=== PATIENT | male | born 1955 | race Caucasian/White ===

== ENCOUNTER 2016-12-18 09:00 | Outpatient (RCR) | payer BC ==
[~2016-12-18] VITALS: Ht 188 cm; Wt 90.9 kg
[~2016-12-18 09:00] MED LIST changes: -AV-PHOS 250 NE250 MG; -BACTRIM 400 MG-1 TA1 PO; -FAMOTIDINE40 M1 PO; -MAGNESIUM-VIT1 EACH PO; -MYCOPHENOLIC A180 MG PO; -NATURAL IRON65 MG PO; -NYSTATIN 100MU/M1 ML PO; -PRAVACHOL 20MG20 MG PO; -PREDNISONE10 MG PO; -PROGRAF 1MG1 MG PO; -VALCYTE50 MG/ML PO
[2016-12-18] MEDS ORDERED: PROGRAF 1MG1 MG PO (09:24)
[2016-12-18] MEDS ORDERED: MYCOPHENOLIC A180 MG PO (09:25)
[2016-12-18] MEDS ORDERED: PREDNISONE10 MG PO (09:25)
[2016-12-18] MEDS ORDERED: VALCYTE50 MG/ML PO (09:25)
[2016-12-18] MEDS ORDERED: BACTRIM 400 MG-1 TA1 PO (09:25)
[2016-12-18] MEDS ORDERED: NYSTATIN 100MU/M1 ML PO (09:25)
[2016-12-18] MEDS ORDERED: MAGNESIUM-VIT1 EACH PO (09:26)
[2016-12-18] MEDS ORDERED: PRAVACHOL 20MG20 MG PO (09:26)
[2016-12-18] MEDS ORDERED: NATURAL IRON65 MG PO (09:26)
[2016-12-18] MEDS ORDERED: AV-PHOS 250 NE250 MG (09:26)
[2016-12-18] MEDS ORDERED: FAMOTIDINE40 M1 PO (09:27)
[2016-12-21 17:50] VITALS: BP 112/73
== END 2017-03-18 | disposition home or self-care (01) ==
LOC: AMSURD
DX: Z48.00 Encounter for change or removal of nonsurgical wound dressing (principal); Z45.2 Encounter for adjustment and management of vascular access device

== ENCOUNTER → 2016-12-18 | Outpatient (CLI) | payer BC ==
[~2016-12-18] MED LIST: AV-PHOS 250 NE250 MG; BACTRIM 400 MG-1 TA1 PO; COUMADIN 1010 MG/TAB PO; COUMADIN 5MG5 MG/TAB PO; ESBRIET267 MG PO; FAMOTIDINE40 M1 PO; LASIX40 M1; MAGNESIUM-VIT1 EACH PO; METOPROLOL SUCC25 M1 PO; MYCOPHENOLIC A180 MG PO; NATURAL IRON65 MG PO; NYSTATIN 100MU/M1 ML PO; PRAVACHOL 20MG20 MG PO; PREDNISONE10 MG PO; PROGRAF 1MG1 MG PO; VALCYTE50 MG/ML PO; ZYLOPRIM 100MG100 MG PO
[2016-12-18 09:22] VITALS: BP 112/73
== END ==
LOC: LAB 08:18
DX: Z94.2 Lung transplant status (principal); Z48.298 Encounter for aftercare following other organ transplant

== ENCOUNTER → 2016-12-28 | Outpatient (CLI) | payer BC ==
[2016-12-21 17:50] VITALS: BP 112/73
[~2016-12-28] MED LIST changes: +AV-PHOS 250 NE250 MG; +BACTRIM 400 MG-1 TA1 PO; +FAMOTIDINE40 M1 PO; +MAGNESIUM-VIT1 EACH PO; +MYCOPHENOLIC A180 MG PO; +NATURAL IRON65 MG PO; +NYSTATIN 100MU/M1 ML PO; +PRAVACHOL 20MG20 MG PO; +PREDNISONE10 MG PO; +PROGRAF 1MG1 MG PO; +VALCYTE50 MG/ML PO
== END ==
LOC: LAB 08:17
DX: Z51.81 Encounter for therapeutic drug level monitoring (principal); Z79.01 Long term (current) use of anticoagulants; I48.2 Chronic atrial fibrillation

== ENCOUNTER → 2017-01-03 | Outpatient (CLI) | payer BC ==
[2016-12-21 17:50] VITALS: BP 112/73
== END ==
LOC: LAB 08:04
DX: Z51.81 Encounter for therapeutic drug level monitoring (principal); Z79.01 Long term (current) use of anticoagulants; I48.2 Chronic atrial fibrillation

== ENCOUNTER → 2017-01-23 | Outpatient (CLI) | payer BC | LOC: LAB 08:28 | DX: Z48.298 Encounter for aftercare following other organ transplant (principal); Z94.2 Lung transplant status ==

== ENCOUNTER → 2017-04-02 | Outpatient (CLI) | payer BC | LOC: LAB 08:11 | DX: Z94.2 Lung transplant status (principal); Z48.298 Encounter for aftercare following other organ transplant; Z79.899 Other long term (current) drug therapy; Z79.01 Long term (current) use of anticoagulants; I48.2 Chronic atrial fibrillation ==

== ENCOUNTER → 2017-04-11 | Outpatient (CLI) | payer BC | LOC: LAB 09:56 | DX: Z79.01 Long term (current) use of anticoagulants (principal); I48.2 Chronic atrial fibrillation ==

== ENCOUNTER → 2017-05-14 | Outpatient (CLI) | payer BC ==
[2017-05-14 07:44] LABS: PROTHROMBIN TIME 10.7 SECONDS (9.0-12.0)
[2017-05-14 08:14] LABS: BUN/CREATININE RATIO 21.8 (6.0-26.0); CALCIUM 9.6 mg/dL (8.4-10.2); POTASSIUM 4.2 mmol/L (3.6-5.0)
== END ==
LOC: LAB 07:08
PROVIDERS: Internal Medicine Pulmonary Disease
DX: Z48.298 Encounter for aftercare following other organ transplant (principal); Z94.2 Lung transplant status; Z79.01 Long term (current) use of anticoagulants

== ENCOUNTER → 2017-05-14 | Day surgery (SDC) | payer BC | LOC: MSO 07:09 | DX: Z12.11 Encounter for screening for malignant neoplasm of colon (principal); Z94.2 Lung transplant status; Z79.01 Long term (current) use of anticoagulants; Z79.52 Long term (current) use of systemic steroids; Z79.899 Other long term (current) drug therapy; D12.2 Benign neoplasm of ascending colon; D12.4 Benign neoplasm of descending colon; Z87.891 Personal history of nicotine dependence; E11.9 Type 2 diabetes mellitus without complications; Z85.47 Personal history of malignant neoplasm of testis; Z79.4 Long term (current) use of insulin; I48.91 Unspecified atrial fibrillation | CPT/HCPCS: 00810; J7030 ==

== ENCOUNTER → 2017-05-24 | Outpatient (CLI) | payer BC ==
[2017-05-24 08:15] LABS: PROTHROMBIN TIME 16.5 SECONDS (9.0-12.0)
[2017-05-24 08:16] LABS: BUN/CREATININE RATIO 23.6 (6.0-26.0); CALCIUM 9.5 mg/dL (8.4-10.2); POTASSIUM 4.6 mmol/L (3.6-5.0)
== END ==
LOC: LAB 07:55
PROVIDERS: Internal Medicine Pulmonary Disease
DX: Z48.298 Encounter for aftercare following other organ transplant (principal); Z94.2 Lung transplant status; Z79.899 Other long term (current) drug therapy

== ENCOUNTER → 2017-06-08 | Outpatient (CLI) | payer BC ==
[~2017-06-08] VITALS: Ht 188 cm; Wt 115.9 kg
[~2017-06-08] MED LIST changes: +CALCIUM CITRAT1 EAC4 PO; +CLEOCIN HCL300 MG PO; +HUMULIN SQ; +K-PHOS NEUTRAL250 M1 PO; +LOPRESSOR 225 MG/TAB PO; +MAG-OX 400400 MG/TAB PO; +MULTIVITAMIN1 SGL PO; +MYFORTIC180 MG PO; +PEPCID40 M1 PO; +PREDNISONE 5MG5 MG PO; +PROGRAF 0.5MG0.5 MG; +TRAMADOL 50 MG TAB PO; +VITAMIN D31000 I1 PO; +ZITHROMAX 250M250 MG PO; +[UNRECOGNIZED DRUG - OTHER] PO
[2017-06-08 11:15] VITALS: BP 116/72
[2017-06-08 13:27] VITALS: BP 128/67
== END ==
LOC: AMSURD 10:57
DX: E86.0 Dehydration (principal); N17.9 Acute kidney failure, unspecified; Z94.2 Lung transplant status
CPT/HCPCS: J7030

== ENCOUNTER → 2017-06-12 | Outpatient (CLI) | payer BC ==
[2017-06-08 13:27] VITALS: BP 128/67
[2017-06-12 10:12] LABS: BUN/CREATININE RATIO 20.8 (6.0-26.0); POTASSIUM 4.1 mmol/L (3.6-5.0)
== END ==
LOC: LAB 09:51
PROVIDERS: Internal Medicine Pulmonary Disease
DX: Z94.2 Lung transplant status (principal); Z48.24 Encounter for aftercare following lung transplant

== ENCOUNTER → 2017-06-19 | Outpatient (CLI) | payer BC ==
[2017-06-08 13:27] VITALS: BP 128/67
[2017-06-19 10:48] LABS: PROTHROMBIN TIME 17.2 SECONDS (9.0-12.0)
[2017-06-19 10:59] LABS: BUN/CREATININE RATIO 21.1 (6.0-26.0); CALCIUM 9.7 mg/dL (8.4-10.2); POTASSIUM 4.6 mmol/L (3.6-5.0)
== END ==
LOC: LAB 10:03
PROVIDERS: Internal Medicine Pulmonary Disease
DX: Z79.01 Long term (current) use of anticoagulants (principal); I48.2 Chronic atrial fibrillation; Z94.2 Lung transplant status; Z48.298 Encounter for aftercare following other organ transplant

== ENCOUNTER → 2017-06-28 | Outpatient (CLI) | payer BC ==
[2017-06-08 13:27] VITALS: BP 128/67
[2017-06-28 10:40] LABS: BUN/CREATININE RATIO 23.4 (6.0-26.0); CALCIUM 9.4 mg/dL (8.4-10.2); POTASSIUM 3.8 mmol/L (3.6-5.0); TOTAL BILIRUBIN 0.8 mg/dL (0.2-1.3); TOTAL PROTEIN 7.4 g/dL (6.3-8.2)
== END ==
LOC: LAB 08:51
PROVIDERS: Internal Medicine Pulmonary Disease
DX: I48.2 Chronic atrial fibrillation (principal); Z79.01 Long term (current) use of anticoagulants

== ENCOUNTER → 2017-07-09 | Outpatient (CLI) | payer BC ==
[2017-06-08 13:27] VITALS: BP 128/67
[2017-07-09 08:56] LABS: CALCIUM 9.1 mg/dL (8.4-10.2); POTASSIUM 3.9 mmol/L (3.6-5.0)
== END ==
LOC: LAB 08:33
PROVIDERS: Internal Medicine Pulmonary Disease
DX: Z79.899 Other long term (current) drug therapy (principal); Z94.2 Lung transplant status

== ENCOUNTER → 2017-08-01 | Outpatient (CLI) | payer BC ==
[2017-06-08 13:27] VITALS: BP 128/67
[2017-08-01 08:49] LABS: HEMATOCRIT 39.3 % (42.0-52.0); HEMOGLOBIN 12.8 g/dL (13.5-18.0); RED BLOOD COUNT 3.76 M/mm3 (4.20-5.60); RED CELL DISTRIBUTION WIDTH 13.8 % (11.5-14.5); WHITE BLOOD COUNT 3.8 K/mm3 (4.8-10.8)
[2017-08-01 08:56] LABS: BUN/CREATININE RATIO 18.9 (6.0-26.0); CALCIUM 9.4 mg/dL (8.4-10.2); POTASSIUM 4.6 mmol/L (3.6-5.0)
[2017-08-01 09:29] LABS: PROTHROMBIN TIME 23.9 SECONDS (9.0-12.0)
== END ==
LOC: LAB 08:31
PROVIDERS: Internal Medicine Pulmonary Disease
DX: Z94.2 Lung transplant status (principal); E55.9 Vitamin D deficiency, unspecified; Z48.298 Encounter for aftercare following other organ transplant

== ENCOUNTER → 2017-09-05 | Outpatient (CLI) | payer BC ==
[2017-06-08 13:27] VITALS: BP 128/67
[2017-09-05 08:05] LABS: BUN/CREATININE RATIO 23.8 (6.0-26.0); CALCIUM 9.2 mg/dL (8.4-10.2); POTASSIUM 4.6 mmol/L (3.6-5.0)
[2017-09-05 15:01] LABS: PROTHROMBIN TIME 25.6 SECONDS (9.0-12.0)
== END ==
LOC: LAB 07:37
PROVIDERS: Internal Medicine Pulmonary Disease
DX: Z48.298 Encounter for aftercare following other organ transplant (principal); Z94.2 Lung transplant status; Z79.899 Other long term (current) drug therapy

== ENCOUNTER → 2017-10-03 | Outpatient (CLI) | payer BC ==
[2017-06-08 13:27] VITALS: BP 128/67
[2017-10-03 09:51] LABS: URINE TOTAL VOLUME 2675 mL
== END ==
LOC: LAB 09:16
PROVIDERS: Internal Medicine Pulmonary Disease
DX: Z48.298 Encounter for aftercare following other organ transplant (principal); Z94.2 Lung transplant status

== ENCOUNTER → 2017-10-24 | Outpatient (CLI) | payer BC ==
[2017-06-08 13:27] VITALS: BP 128/67
[2017-10-24 08:02] LABS: ALBUMIN 4.3 g/dL (3.5-5.0); BUN/CREATININE RATIO 26.7 (6.0-26.0); CALCIUM 9.1 mg/dL (8.4-10.2); POTASSIUM 4.2 mmol/L (3.6-5.0); TOTAL BILIRUBIN 1.2 mg/dL (0.2-1.3); TOTAL PROTEIN 7.5 g/dL (6.3-8.2)
[2017-10-24 08:22] LABS: PROTHROMBIN TIME 23.5 SECONDS (9.0-12.0)
== END ==
LOC: LAB 07:21
PROVIDERS: Internal Medicine Pulmonary Disease
DX: Z48.298 Encounter for aftercare following other organ transplant (principal); Z94.2 Lung transplant status

== ENCOUNTER → 2017-11-05 | Outpatient (CLI) | payer BC ==
[2017-06-08 13:27] VITALS: BP 128/67
[2017-11-05 08:37] LABS: BASO # 0.1 (0.02-0.10); EOS # 0.2 (0.04-0.40); EOS % 4.3 % (0.0-4.0); HEMOGLOBIN 11.9 g/dL (13.5-18.0); LYMPH# 0.9 (1.50-4.00); MEAN CELL VOLUME 109 fl (78-100); MEAN CORPUSCULAR HEMOGLOBIN 35 pg (27-31); MEAN CORPUSCULAR HGB CONC 32 g/dL (33-37); MEAN PLATELET VOLUME 11.6 fl (7.4-10.4); MONO # 0.4 (0.20-0.80); NEU # 2.4 (1.40-6.50); PLATELET COUNT 145 K/mm3 (130-400); RED BLOOD COUNT 3.41 M/mm3 (4.20-5.60); RED CELL DISTRIBUTION WIDTH 15.6 % (11.5-14.5); WHITE BLOOD COUNT 3.9 K/mm3 (4.8-10.8)
[2017-11-05 08:46] LABS: PROTHROMBIN TIME 31.3 SECONDS (9.0-12.0)
[2017-11-05 08:50] LABS: BUN/CREATININE RATIO 23.3 (6.0-26.0); CALCIUM 9.1 mg/dL (8.4-10.2); POTASSIUM 4.5 mmol/L (3.6-5.0); TOTAL BILIRUBIN 0.9 mg/dL (0.2-1.3); TOTAL PROTEIN 7.2 g/dL (6.3-8.2)
[2017-11-06 15:35] LABS: TACROLIMUS (PROGRAF) 7.5 ng/mL (5.0-15.0)
== END ==
LOC: LAB 08:22
PROVIDERS: Internal Medicine Pulmonary Disease
DX: Z94.2 Lung transplant status (principal); Z48.298 Encounter for aftercare following other organ transplant; Z79.899 Other long term (current) drug therapy

== ENCOUNTER → 2017-11-21 | Outpatient (CLI) | payer BC ==
[2017-06-08 13:27] VITALS: BP 128/67
[2017-11-21 09:06] LABS: PROTHROMBIN TIME 28.6 SECONDS (9.0-12.0)
== END ==
LOC: LAB 08:42
PROVIDERS: Internal Medicine Pulmonary Disease
DX: Z51.81 Encounter for therapeutic drug level monitoring (principal); Z79.01 Long term (current) use of anticoagulants

== ENCOUNTER → 2017-12-03 | Outpatient (CLI) | payer BC ==
[2017-06-08 13:27] VITALS: BP 128/67
[2017-12-03 08:11] LABS: ALBUMIN 4.1 g/dL (3.5-5.0); BUN/CREATININE RATIO 25.3 (6.0-26.0); POTASSIUM 4.6 mmol/L (3.6-5.0); TOTAL PROTEIN 7.1 g/dL (6.3-8.2)
[2017-12-03 08:15] LABS: BASO # 0.1 (0.02-0.10); EOS # 0.2 (0.04-0.40); EOS % 4.2 % (0.0-4.0); HEMOGLOBIN 11.6 g/dL (13.5-18.0); LYMPH# 0.9 (1.50-4.00); MEAN CELL VOLUME 108 fl (78-100); MEAN CORPUSCULAR HEMOGLOBIN 35 pg (27-31); MEAN CORPUSCULAR HGB CONC 32 g/dL (33-37); MONO # 0.4 (0.20-0.80); NEU # 2.3 (1.40-6.50); PLATELET COUNT 133 K/mm3 (130-400); RED BLOOD COUNT 3.33 M/mm3 (4.20-5.60); RED CELL DISTRIBUTION WIDTH 15.2 % (11.5-14.5); WHITE BLOOD COUNT 3.8 K/mm3 (4.8-10.8)
[2017-12-03 08:46] LABS: PROTHROMBIN TIME 29.7 SECONDS (9.0-12.0)
[2017-12-03 09:05] LABS: MEAN PLATELET VOLUME 12.2 fl (7.4-10.4)
[2017-12-04 12:22] LABS: TACROLIMUS (PROGRAF) 7.7 ng/mL (5.0-15.0)
== END ==
LOC: LAB 07:33
PROVIDERS: Internal Medicine Pulmonary Disease
DX: Z48.298 Encounter for aftercare following other organ transplant (principal); Z79.899 Other long term (current) drug therapy; Z94.2 Lung transplant status

== ENCOUNTER → 2018-01-16 | Outpatient (CLI) | payer BC ==
[2017-06-08 13:27] VITALS: BP 128/67
[2018-01-16 08:23] LABS: BUN/CREATININE RATIO 21.3 (6.0-26.0); CALCIUM 9.1 mg/dL (8.4-10.2); POTASSIUM 5.3 mmol/L (3.6-5.0)
[2018-01-16 08:38] LABS: PROTHROMBIN TIME 22.9 SECONDS (9.0-12.0)
== END ==
LOC: LAB 07:40
PROVIDERS: Internal Medicine Pulmonary Disease
DX: Z48.298 Encounter for aftercare following other organ transplant (principal); Z94.2 Lung transplant status; Z79.01 Long term (current) use of anticoagulants; Z79.899 Other long term (current) drug therapy

== ENCOUNTER → 2018-01-30 | Outpatient (CLI) | payer BC ==
[2017-06-08 13:27] VITALS: BP 128/67
[2018-01-30 08:36] LABS: BASO # 0.1 (0.02-0.10); EOS # 0.2 (0.04-0.40); EOS % 4.6 % (0.0-4.0); HEMATOCRIT 36.8 % (42.0-52.0); HEMOGLOBIN 11.9 g/dL (13.5-18.0); LYMPH# 0.9 (1.50-4.00); MEAN CELL VOLUME 109 fl (78-100); MEAN CORPUSCULAR HEMOGLOBIN 35 pg (27-31); MEAN CORPUSCULAR HGB CONC 32 g/dL (33-37); MEAN PLATELET VOLUME 11.5 fl (7.4-10.4); MONO # 0.4 (0.20-0.80); NEU # 2.4 (1.40-6.50); PLATELET COUNT 139 K/mm3 (130-400); RED BLOOD COUNT 3.39 M/mm3 (4.20-5.60); RED CELL DISTRIBUTION WIDTH 15.5 % (11.5-14.5); WHITE BLOOD COUNT 3.9 K/mm3 (4.8-10.8)
[2018-01-30 08:52] LABS: ALBUMIN 4.4 g/dL (3.5-5.0); BUN/CREATININE RATIO 22.4 (6.0-26.0); CALCIUM 9.1 mg/dL (8.4-10.2); TOTAL BILIRUBIN 1.1 mg/dL (0.2-1.3); TOTAL PROTEIN 7.3 g/dL (6.3-8.2)
[2018-01-30 09:04] LABS: PROTHROMBIN TIME 25.7 SECONDS (9.0-12.0)
[2018-01-31 14:01] LABS: TACROLIMUS (PROGRAF) 8.4 ng/mL (5.0-15.0)
== END ==
LOC: LAB 08:22
DX: Z48.298 Encounter for aftercare following other organ transplant (principal); Z94.2 Lung transplant status; Z79.899 Other long term (current) drug therapy

== ENCOUNTER → 2018-03-06 | Outpatient (CLI) | payer BC ==
[2017-06-08 13:27] VITALS: BP 128/67
[2018-03-06 08:22] LABS: BASO # 0.1 (0.02-0.10); EOS # 0.1 (0.04-0.40); HEMATOCRIT 36.6 % (42.0-52.0); HEMOGLOBIN 11.9 g/dL (13.5-18.0); LYMPH# 0.8 (1.50-4.00); MEAN CELL VOLUME 109 fl (78-100); MEAN CORPUSCULAR HEMOGLOBIN 35 pg (27-31); MEAN CORPUSCULAR HGB CONC 33 g/dL (33-37); MONO # 0.4 (0.20-0.80); NEU # 2.1 (1.40-6.50); PLATELET COUNT 132 K/mm3 (130-400); RED BLOOD COUNT 3.36 M/mm3 (4.20-5.60); RED CELL DISTRIBUTION WIDTH 15.3 % (11.5-14.5); WHITE BLOOD COUNT 3.5 K/mm3 (4.8-10.8)
[2018-03-06 08:23] LABS: MEAN PLATELET VOLUME 12.3 fl (7.4-10.4); PROTHROMBIN TIME 26.3 SECONDS (9.0-12.0)
[2018-03-06 08:25] LABS: ALBUMIN 4.3 g/dL (3.5-5.0); CALCIUM 9.1 mg/dL (8.4-10.2); POTASSIUM 4.5 mmol/L (3.6-5.0); TOTAL BILIRUBIN 1.3 mg/dL (0.2-1.3); TOTAL PROTEIN 7.2 g/dL (6.3-8.2)
[2018-03-07 12:11] LABS: TACROLIMUS (PROGRAF) 7.8 ng/mL (5.0-15.0)
== END ==
LOC: LAB 07:51
PROVIDERS: Internal Medicine Pulmonary Disease
DX: Z48.298 Encounter for aftercare following other organ transplant (principal); Z79.01 Long term (current) use of anticoagulants; Z79.899 Other long term (current) drug therapy; Z94.2 Lung transplant status

== ENCOUNTER → 2018-04-25 | Outpatient (CLI) | payer MEDICARE, BC ==
[2017-06-08 13:27] VITALS: BP 128/67
[2018-04-25 08:39] LABS: PROTHROMBIN TIME 22.8 SECONDS (9.0-12.0)
[2018-04-25 08:41] LABS: ALBUMIN 4.5 g/dL (3.5-5.0); CALCIUM 9.3 mg/dL (8.4-10.2); POTASSIUM 4.3 mmol/L (3.6-5.0); TOTAL BILIRUBIN 1.1 mg/dL (0.2-1.3); TOTAL PROTEIN 7.4 g/dL (6.3-8.2)
[2018-04-25 08:59] LABS: BASO # 0.1 (0.02-0.10); EOS # 0.2 (0.04-0.40); HEMATOCRIT 37.8 % (42.0-52.0); HEMOGLOBIN 12.2 g/dL (13.5-18.0); LYMPH# 0.8 (1.50-4.00); MEAN CELL VOLUME 108 fl (78-100); MEAN CORPUSCULAR HEMOGLOBIN 35 pg (27-31); MEAN CORPUSCULAR HGB CONC 32 g/dL (33-37); MONO # 0.4 (0.20-0.80); NEU # 1.9 (1.40-6.50); PLATELET COUNT 143 K/mm3 (130-400); RED CELL DISTRIBUTION WIDTH 15.1 % (11.5-14.5); WHITE BLOOD COUNT 3.3 K/mm3 (4.8-10.8)
[2018-04-25 09:00] LABS: EOS % 5.5 % (0.0-4.0); MEAN PLATELET VOLUME 12.2 fl (7.4-10.4)
[2018-04-26 14:35] LABS: TACROLIMUS (PROGRAF) 6.2 ng/mL (5.0-15.0)
== END ==
LOC: LAB 08:08
PROVIDERS: Internal Medicine Pulmonary Disease
DX: Z48.298 Encounter for aftercare following other organ transplant (principal); Z94.2 Lung transplant status; Z79.899 Other long term (current) drug therapy; Z79.01 Long term (current) use of anticoagulants

== ENCOUNTER → 2018-05-15 | Outpatient (CLI) | payer MEDICARE, BC ==
[2017-06-08 13:27] VITALS: BP 128/67
[2018-05-15 09:34] LABS: PROTHROMBIN TIME 23.1 SECONDS (9.0-12.0)
== END ==
LOC: LAB 08:36
PROVIDERS: Internal Medicine Pulmonary Disease
DX: Z51.81 Encounter for therapeutic drug level monitoring (principal); Z79.01 Long term (current) use of anticoagulants

== ENCOUNTER 2018-05-22 08:30 | Outpatient (RCR) | payer MEDICARE, BC ==
[2017-06-08 13:27] VITALS: BP 128/67
== END 2018-05-22 09:00 | disposition home or self-care (01) ==
LOC: PT 08:30
DX: M54.2 Cervicalgia (principal); M25.512 Pain in left shoulder; G89.29 Other chronic pain; Z94.2 Lung transplant status
CPT/HCPCS: G8985-GP

== ENCOUNTER → 2018-06-05 | Outpatient (CLI) | payer MEDICARE, BC ==
[2017-06-08 13:27] VITALS: BP 128/67
[2018-06-05 09:23] LABS: ALBUMIN 4.6 g/dL (3.5-5.0); CALCIUM 9.8 mg/dL (8.4-10.2); POTASSIUM 4.7 mmol/L (3.6-5.0); TOTAL BILIRUBIN 1.4 mg/dL (0.2-1.3); TOTAL PROTEIN 7.5 g/dL (6.3-8.2)
[2018-06-05 09:32] LABS: BASO # 0.1 (0.02-0.10); EOS # 0.1 (0.04-0.40); EOS % 3.5 % (0.0-4.0); HEMATOCRIT 39.1 % (42.0-52.0); HEMOGLOBIN 12.6 g/dL (13.5-18.0); MEAN CELL VOLUME 109 fl (78-100); MEAN CORPUSCULAR HEMOGLOBIN 35 pg (27-31); MEAN CORPUSCULAR HGB CONC 32 g/dL (33-37); MONO # 0.5 (0.20-0.80); NEU # 2.3 (1.40-6.50); PLATELET COUNT 143 K/mm3 (130-400); RED BLOOD COUNT 3.59 M/mm3 (4.20-5.60); RED CELL DISTRIBUTION WIDTH 15.4 % (11.5-14.5)
[2018-06-05 09:44] LABS: PROTHROMBIN TIME 21.5 SECONDS (9.0-12.0)
[2018-06-05 10:13] LABS: MEAN PLATELET VOLUME 12.6 fl (7.4-10.4)
[2018-06-06 13:07] LABS: TACROLIMUS (PROGRAF) 8.2 ng/mL (5.0-15.0)
== END ==
LOC: LAB 08:12
PROVIDERS: Internal Medicine Pulmonary Disease
DX: Z51.81 Encounter for therapeutic drug level monitoring (principal); Z79.01 Long term (current) use of anticoagulants; Z94.2 Lung transplant status

== ENCOUNTER → 2018-08-07 | Outpatient (CLI) | payer MEDICARE, OTHER ==
[2017-06-08 13:27] VITALS: BP 128/67
[2018-08-07 08:42] LABS: PROTHROMBIN TIME 21.6 SECONDS (9.0-12.0)
[2018-08-07 08:44] LABS: ALBUMIN 4.6 g/dL (3.5-5.0); CALCIUM 8.9 mg/dL (8.4-10.2); POTASSIUM 4.2 mmol/L (3.6-5.0); TOTAL BILIRUBIN 1.1 mg/dL (0.2-1.3); TOTAL PROTEIN 7.6 g/dL (6.3-8.2)
[2018-08-07 09:17] LABS: BASO # 0.1 (0.02-0.10); EOS # 0.2 (0.04-0.40); EOS % 2.2 % (0.0-4.0); HEMATOCRIT 38.6 % (42.0-52.0); HEMOGLOBIN 12.3 g/dL (13.5-18.0); LYMPH# 0.8 (1.50-4.00); MEAN CELL VOLUME 109 fl (78-100); MEAN CORPUSCULAR HEMOGLOBIN 35 pg (27-31); MEAN CORPUSCULAR HGB CONC 32 g/dL (33-37); MONO # 0.8 (0.20-0.80); NEU # 5.1 (1.40-6.50); PLATELET COUNT 141 K/mm3 (130-400); RED BLOOD COUNT 3.53 M/mm3 (4.20-5.60); RED CELL DISTRIBUTION WIDTH 15.5 % (11.5-14.5); WHITE BLOOD COUNT 6.9 K/mm3 (4.8-10.8)
[2018-08-07 09:26] LABS: MEAN PLATELET VOLUME 12.5 fl (7.4-10.4)
== END ==
LOC: LAB 08:09
PROVIDERS: Internal Medicine Pulmonary Disease
DX: Z48.298 Encounter for aftercare following other organ transplant (principal); Z94.2 Lung transplant status; Z79.01 Long term (current) use of anticoagulants; Z79.899 Other long term (current) drug therapy

== ENCOUNTER → 2018-09-04 | Outpatient (CLI) | payer OTHER, MEDICARE ==
[2017-06-08 13:27] VITALS: BP 128/67
[2018-09-04 08:16] LABS: ALBUMIN 4.4 g/dL (3.5-5.0); CALCIUM 9.3 mg/dL (8.4-10.2); POTASSIUM 4.7 mmol/L (3.6-5.0); TOTAL BILIRUBIN 0.9 mg/dL (0.2-1.3); TOTAL PROTEIN 7.3 g/dL (6.3-8.2)
[2018-09-04 08:48] LABS: BASO # 0.1 (0.02-0.10); EOS # 0.2 (0.04-0.40); EOS % 4.4 % (0.0-4.0); HEMATOCRIT 38.6 % (42.0-52.0); HEMOGLOBIN 12.4 g/dL (13.5-18.0); LYMPH# 0.9 (1.50-4.00); MEAN CELL VOLUME 109 fl (78-100); MEAN CORPUSCULAR HEMOGLOBIN 35 pg (27-31); MEAN CORPUSCULAR HGB CONC 32 g/dL (33-37); MONO # 0.4 (0.20-0.80); NEU # 2.1 (1.40-6.50); PLATELET COUNT 134 K/mm3 (130-400); RED BLOOD COUNT 3.54 M/mm3 (4.20-5.60); RED CELL DISTRIBUTION WIDTH 15.5 % (11.5-14.5); WHITE BLOOD COUNT 3.6 K/mm3 (4.8-10.8)
[2018-09-04 08:52] LABS: MEAN PLATELET VOLUME 12.3 fl (7.4-10.4)
[2018-09-05 02:08] LABS: TACROLIMUS (PROGRAF) 8.1 ng/mL (5.0-15.0)
== END ==
LOC: LAB 07:25
PROVIDERS: Internal Medicine Pulmonary Disease
DX: Z48.298 Encounter for aftercare following other organ transplant (principal); Z94.2 Lung transplant status; Z79.899 Other long term (current) drug therapy

== ENCOUNTER → 2018-10-02 | Outpatient (CLI) | payer MEDICARE, OTHER ==
[2017-06-08 13:27] VITALS: BP 128/67
[2018-10-02 08:19] LABS: PROTHROMBIN TIME 18.4 SECONDS (9.0-12.0)
[2018-10-02 08:26] LABS: BASO # 0.1 (0.02-0.10); EOS # 0.1 (0.04-0.40); EOS % 3.9 % (0.0-4.0); HEMATOCRIT 37.1 % (42.0-52.0); HEMOGLOBIN 12.2 g/dL (13.5-18.0); LYMPH# 0.8 (1.50-4.00); MEAN CELL VOLUME 107 fl (78-100); MEAN CORPUSCULAR HEMOGLOBIN 35 pg (27-31); MEAN CORPUSCULAR HGB CONC 33 g/dL (33-37); MONO # 0.4 (0.20-0.80); NEU # 1.8 (1.40-6.50); PLATELET COUNT 143 K/mm3 (130-400); RED BLOOD COUNT 3.46 M/mm3 (4.20-5.60); RED CELL DISTRIBUTION WIDTH 15.9 % (11.5-14.5); WHITE BLOOD COUNT 3.1 K/mm3 (4.8-10.8)
[2018-10-02 08:33] LABS: ALBUMIN 4.3 g/dL (3.5-5.0); CALCIUM 9.2 mg/dL (8.4-10.2); POTASSIUM 4.3 mmol/L (3.6-5.0)
[2018-10-03 13:37] LABS: TACROLIMUS (PROGRAF) 6.8 ng/mL (5.0-15.0)
== END ==
LOC: LAB 07:41
PROVIDERS: Internal Medicine Pulmonary Disease
DX: Z48.298 Encounter for aftercare following other organ transplant (principal); Z94.2 Lung transplant status; Z79.899 Other long term (current) drug therapy

== ENCOUNTER → 2018-10-14 | Outpatient (CLI) | payer OTHER, MEDICARE ==
[2017-06-08 13:27] VITALS: BP 128/67
== END ==
LOC: LAB 09:26
DX: Z48.298 Encounter for aftercare following other organ transplant (principal); N18.9 Chronic kidney disease, unspecified; Z94.2 Lung transplant status; Z79.899 Other long term (current) drug therapy

== ENCOUNTER → 2018-11-14 | Outpatient (CLI) | payer OTHER, MEDICARE ==
[2017-06-08 13:27] VITALS: BP 128/67
[2018-11-14 08:25] LABS: BASO # 0.1 (0.02-0.10); EOS # 0.1 (0.04-0.40); EOS % 3.7 % (0.0-4.0); HEMATOCRIT 37.4 % (42.0-52.0); HEMOGLOBIN 11.8 g/dL (13.5-18.0); LYMPH# 0.9 (1.50-4.00); MEAN CELL VOLUME 110 fl (78-100); MEAN CORPUSCULAR HEMOGLOBIN 35 pg (27-31); MEAN CORPUSCULAR HGB CONC 32 g/dL (33-37); MONO # 0.4 (0.20-0.80); NEU # 2.3 (1.40-6.50); PLATELET COUNT 131 K/mm3 (130-400); RED BLOOD COUNT 3.41 M/mm3 (4.20-5.60); RED CELL DISTRIBUTION WIDTH 16.1 % (11.5-14.5); WHITE BLOOD COUNT 3.8 K/mm3 (4.8-10.8)
[2018-11-14 08:29] LABS: CALCIUM 8.8 mg/dL (8.3-10.5); POTASSIUM 4.2 mmol/L (3.5-5.1); PROTHROMBIN TIME 21.8 SECONDS (9.0-12.0); TOTAL BILIRUBIN 0.9 mg/dL (0.2-1.2); TOTAL PROTEIN 6.6 g/dL (6.2-8.1)
[2018-11-14 08:31] LABS: MEAN PLATELET VOLUME 12.1 fl (7.4-10.4)
== END ==
LOC: LAB 07:42
PROVIDERS: Internal Medicine Pulmonary Disease
DX: I48.2 Chronic atrial fibrillation (principal); Z48.298 Encounter for aftercare following other organ transplant; Z94.2 Lung transplant status; Z79.01 Long term (current) use of anticoagulants; Z79.899 Other long term (current) drug therapy

== ENCOUNTER → 2018-12-02 | Outpatient (CLI) | payer OTHER, MEDICARE ==
[2017-06-08 13:27] VITALS: BP 128/67
[2018-12-02 16:16] LABS: PROTHROMBIN TIME 20.5 SECONDS (9.0-12.0)
== END ==
LOC: LAB 14:52
PROVIDERS: Internal Medicine Pulmonary Disease
DX: Z48.298 Encounter for aftercare following other organ transplant (principal); I48.2 Chronic atrial fibrillation; Z94.2 Lung transplant status; Z79.01 Long term (current) use of anticoagulants; Z79.899 Other long term (current) drug therapy

== ENCOUNTER → 2018-12-16 | Outpatient (CLI) | payer OTHER, MEDICARE ==
[2017-06-08 13:27] VITALS: BP 128/67
[2018-12-16 07:35] LABS: BASO # 0.1 (0.02-0.10); EOS # 0.1 (0.04-0.40); EOS % 3.7 % (0.0-4.0); HEMATOCRIT 37.5 % (42.0-52.0); HEMOGLOBIN 11.8 g/dL (13.5-18.0); LYMPH# 0.9 (1.50-4.00); MEAN CELL VOLUME 110 fl (78-100); MEAN CORPUSCULAR HEMOGLOBIN 35 pg (27-31); MEAN CORPUSCULAR HGB CONC 32 g/dL (33-37); MONO # 0.4 (0.20-0.80); NEU # 2.3 (1.40-6.50); PLATELET COUNT 127 K/mm3 (130-400); RED BLOOD COUNT 3.41 M/mm3 (4.20-5.60); RED CELL DISTRIBUTION WIDTH 15.8 % (11.5-14.5); WHITE BLOOD COUNT 3.8 K/mm3 (4.8-10.8)
[2018-12-16 07:46] LABS: ALBUMIN 4.1 g/dL (3.4-4.8); POTASSIUM 4.4 mmol/L (3.5-5.1)
[2018-12-16 07:47] LABS: CALCIUM 8.9 mg/dL (8.3-10.5)
[2018-12-16 07:48] LABS: TOTAL PROTEIN 6.9 g/dL (6.2-8.1)
[2018-12-16 07:49] LABS: PROTHROMBIN TIME 29.1 SECONDS (9.0-12.0)
[2018-12-16 07:50] LABS: TOTAL BILIRUBIN 1.1 mg/dL (0.2-1.2)
[2018-12-16 07:52] LABS: MEAN PLATELET VOLUME 12.2 fl (7.4-10.4)
== END ==
LOC: LAB 07:22
PROVIDERS: Internal Medicine Pulmonary Disease
DX: Z48.298 Encounter for aftercare following other organ transplant (principal); I48.2 Chronic atrial fibrillation; Z94.2 Lung transplant status; Z79.01 Long term (current) use of anticoagulants; Z79.899 Other long term (current) drug therapy

== ENCOUNTER → 2018-12-24 | Outpatient (CLI) | payer OTHER, MEDICARE ==
[2017-06-08 13:27] VITALS: BP 128/67
[2018-12-24 08:21] LABS: ALBUMIN 4.2 g/dL (3.4-4.8); POTASSIUM 4.4 mmol/L (3.5-5.1)
[2018-12-24 08:23] LABS: CALCIUM 9.2 mg/dL (8.3-10.5)
[2018-12-24 08:24] LABS: TOTAL PROTEIN 6.8 g/dL (6.2-8.1)
== END ==
LOC: LAB 07:49
PROVIDERS: Internal Medicine Pulmonary Disease
DX: Z48.298 Encounter for aftercare following other organ transplant (principal); Z94.2 Lung transplant status; Z79.899 Other long term (current) drug therapy

== ENCOUNTER → 2019-02-05 | Outpatient (CLI) | payer OTHER, MEDICARE ==
[2017-06-08 13:27] VITALS: BP 128/67
[2019-02-05 08:16] LABS: BASO # 0.1 (0.02-0.10); EOS # 0.2 (0.04-0.40); HEMATOCRIT 37.5 % (42.0-52.0); LYMPH# 0.9 (1.50-4.00); MEAN CELL VOLUME 110 fl (78-100); MEAN CORPUSCULAR HEMOGLOBIN 35 pg (27-31); MEAN CORPUSCULAR HGB CONC 32 g/dL (33-37); MEAN PLATELET VOLUME 11.7 fl (7.4-10.4); MONO # 0.4 (0.20-0.80); NEU # 2.6 (1.40-6.50); PLATELET COUNT 142 K/mm3 (130-400); RED BLOOD COUNT 3.41 M/mm3 (4.20-5.60); RED CELL DISTRIBUTION WIDTH 15.9 % (11.5-14.5); WHITE BLOOD COUNT 4.2 K/mm3 (4.8-10.8)
[2019-02-05 08:19] LABS: EOS % 5.4 % (0.0-4.0)
[2019-02-05 08:26] LABS: POTASSIUM 4.1 mmol/L (3.5-5.1)
== END ==
LOC: LAB 07:55
PROVIDERS: Internal Medicine Pulmonary Disease
DX: Z48.298 Encounter for aftercare following other organ transplant (principal); Z94.2 Lung transplant status; Z79.899 Other long term (current) drug therapy

== ENCOUNTER 2019-02-15 13:19 | Emergency (ER) | payer OTHER, MEDICARE ==
[~2019-02-15] VITALS: Ht 188 cm; Wt 121.4 kg
[~2019-02-15 13:19] MED LIST changes: +MULTI-VITAMINS1 TA1 PO; -MULTIVITAMIN1 SGL PO; +PEPCID 20MG TAB20 MG PO; -PEPCID40 M1 PO; -PROGRAF 0.5MG0.5 MG; +PROGRAF 0.5MG0.5 MG PO; +VALCYTE450 MG PO; -[UNRECOGNIZED DRUG - OTHER] PO
[2019-02-15] MEDS ORDERED: PROGRAF 1MG1 MG PO (14:00)
[2019-02-15] MEDS ORDERED: COUMADIN 77.5 MG/TAB PO (14:06)
[2019-02-15 14:43] LABS: ALBUMIN 4.2 g/dL (3.4-4.8); POTASSIUM 3.8 mmol/L (3.5-5.1)
[2019-02-15 14:44] LABS: HEMATOCRIT 39.6 % (42.0-52.0); HEMOGLOBIN 12.7 g/dL (13.5-18.0); MEAN CELL VOLUME 109 fl (78-100); MEAN CORPUSCULAR HEMOGLOBIN 35 pg (27-31); MEAN CORPUSCULAR HGB CONC 32 g/dL (33-37); PLATELET COUNT 141 K/mm3 (130-400); RED BLOOD COUNT 3.62 M/mm3 (4.20-5.60); RED CELL DISTRIBUTION WIDTH 15.7 % (11.5-14.5); WHITE BLOOD COUNT 4.4 K/mm3 (4.8-10.8)
[2019-02-15 14:45] LABS: CALCIUM 8.5 mg/dL (8.3-10.5)
[2019-02-15 14:46] LABS: TOTAL PROTEIN 7.2 g/dL (6.2-8.1)
[2019-02-15 14:48] LABS: TOTAL BILIRUBIN 0.9 mg/dL (0.2-1.2)
[2019-02-15] MEDS ORDERED: VITAMIN C PURE500 M1 PO (14:59)
[2019-02-15 15:01] LABS: LYMPHOCYTE 16 % (20-51); MONOCYTE 10 % (3-10); NEUTROPHILS 72 % (42-75)
[2019-02-15] MEDS ORDERED: DAPSONE100 M1 PO (15:01)
[2019-02-15 15:47] VITALS: BP 105/64
== END 2019-02-15 15:45 | disposition home or self-care (01) ==
LOC: ED 13:19
PROVIDERS: Family Medicine
DX: R19.7 Diarrhea, unspecified (principal); D89.9 Disorder involving the immune mechanism, unspecified; I10 Essential (primary) hypertension; I48.91 Unspecified atrial fibrillation; E11.9 Type 2 diabetes mellitus without complications; Z87.09 Personal history of other diseases of the respiratory system; Z79.01 Long term (current) use of anticoagulants; Z94.2 Lung transplant status; Z79.52 Long term (current) use of systemic steroids

== ENCOUNTER → 2019-02-26 | Outpatient (CLI) | payer OTHER, MEDICARE ==
[2019-02-15 15:47] VITALS: BP 105/64
[~2019-02-26] MED LIST changes: +COUMADIN 77.5 MG/TAB PO; +DAPSONE100 M1 PO; +VITAMIN C PURE500 M1 PO
[2019-02-26 10:05] LABS: PROTHROMBIN TIME 35.7 SECONDS (9.0-12.0)
== END ==
LOC: LAB 09:31
PROVIDERS: Internal Medicine Pulmonary Disease
DX: Z48.298 Encounter for aftercare following other organ transplant (principal); I48.2 Chronic atrial fibrillation; Z79.01 Long term (current) use of anticoagulants; Z94.2 Lung transplant status

== ENCOUNTER → 2019-03-12 | Outpatient (CLI) | payer OTHER, MEDICARE ==
[2019-02-15 15:47] VITALS: BP 105/64
[2019-03-12 08:41] LABS: EOS # 0.1 (0.04-0.40); EOS % 2.4 % (0.0-4.0); HEMATOCRIT 35.2 % (42.0-52.0); HEMOGLOBIN 11.3 g/dL (13.5-18.0); MEAN CELL VOLUME 109 fl (78-100); MEAN CORPUSCULAR HEMOGLOBIN 35 pg (27-31); MEAN CORPUSCULAR HGB CONC 32 g/dL (33-37); MEAN PLATELET VOLUME 12.1 fl (7.4-10.4); MONO # 0.4 (0.20-0.80); NEU # 2.9 (1.40-6.50); PLATELET COUNT 124 K/mm3 (130-400); RED BLOOD COUNT 3.22 M/mm3 (4.20-5.60); RED CELL DISTRIBUTION WIDTH 15.5 % (11.5-14.5); WHITE BLOOD COUNT 4.5 K/mm3 (4.8-10.8)
[2019-03-12 08:48] LABS: PROTHROMBIN TIME 35.3 SECONDS (9.0-12.0)
[2019-03-12 08:50] LABS: POTASSIUM 4.5 mmol/L (3.5-5.1)
[2019-03-12 08:51] LABS: CALCIUM 9.1 mg/dL (8.3-10.5)
== END ==
LOC: LAB 08:05
PROVIDERS: Internal Medicine Pulmonary Disease
DX: Z48.298 Encounter for aftercare following other organ transplant (principal); I48.2 Chronic atrial fibrillation; Z94.2 Lung transplant status; Z79.899 Other long term (current) drug therapy; Z79.01 Long term (current) use of anticoagulants

== ENCOUNTER → 2019-03-21 | Outpatient (CLI) | payer OTHER, MEDICARE ==
[2019-03-21 07:49] LABS: BASO # 0.1 (0.02-0.10); EOS # 0.2 (0.04-0.40); EOS % 3.9 % (0.0-4.0); HEMATOCRIT 35.2 % (42.0-52.0); HEMOGLOBIN 11.3 g/dL (13.5-18.0); LYMPH# 1.1 (1.50-4.00); MEAN CELL VOLUME 109 fl (78-100); MEAN CORPUSCULAR HEMOGLOBIN 35 pg (27-31); MEAN CORPUSCULAR HGB CONC 32 g/dL (33-37); MEAN PLATELET VOLUME 11.8 fl (7.4-10.4); MONO # 0.5 (0.20-0.80); NEU # 2.3 (1.40-6.50); PLATELET COUNT 131 K/mm3 (130-400); RED BLOOD COUNT 3.22 M/mm3 (4.20-5.60); RED CELL DISTRIBUTION WIDTH 15.8 % (11.5-14.5); WHITE BLOOD COUNT 4.1 K/mm3 (4.8-10.8)
[2019-03-21 07:57] LABS: POTASSIUM 4.6 mmol/L (3.5-5.1)
== END ==
LOC: LAB 07:35
PROVIDERS: Internal Medicine Pulmonary Disease
DX: Z48.298 Encounter for aftercare following other organ transplant (principal); Z94.2 Lung transplant status; Z79.899 Other long term (current) drug therapy

== ENCOUNTER → 2019-03-26 | Outpatient (CLI) | payer OTHER, MEDICARE ==
[2019-03-26 09:13] LABS: PROTHROMBIN TIME 38.3 SECONDS (9.0-12.0)
== END ==
LOC: LAB 08:12
PROVIDERS: Internal Medicine Pulmonary Disease
DX: Z48.298 Encounter for aftercare following other organ transplant (principal); I48.20 Chronic atrial fibrillation, unspecified; Z79.01 Long term (current) use of anticoagulants; Z94.2 Lung transplant status

== ENCOUNTER → 2019-04-02 | Outpatient (CLI) | payer OTHER, MEDICARE ==
[2019-04-02 09:00] LABS: POTASSIUM 4.4 mmol/L (3.5-5.1)
[2019-04-02 09:01] LABS: CALCIUM 9.2 mg/dL (8.3-10.5)
[2019-04-02 09:04] LABS: PROTHROMBIN TIME 33.4 SECONDS (9.0-12.0)
[2019-04-02 09:23] LABS: EOS # 0.1 (0.04-0.40); EOS % 2.6 % (0.0-4.0); HEMATOCRIT 37.2 % (42.0-52.0); HEMOGLOBIN 11.8 g/dL (13.5-18.0); LYMPH# 0.9 (1.50-4.00); MEAN CELL VOLUME 110 fl (78-100); MEAN CORPUSCULAR HEMOGLOBIN 35 pg (27-31); MEAN CORPUSCULAR HGB CONC 32 g/dL (33-37); MONO # 0.3 (0.20-0.80); NEU # 2.1 (1.40-6.50); PLATELET COUNT 139 K/mm3 (130-400); RED BLOOD COUNT 3.39 M/mm3 (4.20-5.60); RED CELL DISTRIBUTION WIDTH 16.2 % (11.5-14.5); WHITE BLOOD COUNT 3.5 K/mm3 (4.8-10.8)
[2019-04-02 09:52] LABS: MEAN PLATELET VOLUME 12.6 fl (7.4-10.4)
== END ==
LOC: LAB 08:26
PROVIDERS: Internal Medicine Pulmonary Disease
DX: Z48.298 Encounter for aftercare following other organ transplant (principal); Z94.2 Lung transplant status; Z79.899 Other long term (current) drug therapy

== ENCOUNTER → 2019-04-08 | Outpatient (CLI) | payer OTHER, MEDICARE ==
[2019-04-08 09:43] LABS: PROTHROMBIN TIME 28.9 SECONDS (9.0-12.0)
== END ==
LOC: LAB 09:12
PROVIDERS: Internal Medicine Pulmonary Disease
DX: Z48.298 Encounter for aftercare following other organ transplant (principal); I48.20 Chronic atrial fibrillation, unspecified; Z79.01 Long term (current) use of anticoagulants; Z94.2 Lung transplant status

== ENCOUNTER → 2019-04-16 | Outpatient (CLI) | payer OTHER, MEDICARE ==
[2019-04-16 08:26] LABS: HEMATOCRIT 35.7 % (42.0-52.0); HEMOGLOBIN 11.2 g/dL (13.5-18.0); MEAN CORPUSCULAR HEMOGLOBIN 35 pg (27-31); MEAN CORPUSCULAR HGB CONC 31 g/dL (33-37); MEAN PLATELET VOLUME 11.8 fl (7.4-10.4); PLATELET COUNT 139 K/mm3 (130-400); RED BLOOD COUNT 3.19 M/mm3 (4.20-5.60); RED CELL DISTRIBUTION WIDTH 16.7 % (11.5-14.5); WHITE BLOOD COUNT 3.4 K/mm3 (4.8-10.8)
[2019-04-16 08:30] LABS: POTASSIUM 4.5 mmol/L (3.5-5.1)
[2019-04-16 08:31] LABS: CALCIUM 9.3 mg/dL (8.3-10.5)
[2019-04-16 08:39] LABS: BAND 1 % (0-10); LYMPHOCYTE 29 % (20-51); MEAN CELL VOLUME 112 fl (78-100); MONOCYTE 12 % (3-10); NEUTROPHILS 52 % (42-75); OVALOCYTES 2+
[2019-04-16 09:02] LABS: PROTHROMBIN TIME 28.4 SECONDS (9.0-12.0)
== END ==
LOC: LAB 08:02
PROVIDERS: Internal Medicine Pulmonary Disease
DX: Z48.298 Encounter for aftercare following other organ transplant (principal); I48.20 Chronic atrial fibrillation, unspecified; Z79.01 Long term (current) use of anticoagulants; Z79.899 Other long term (current) drug therapy; Z94.2 Lung transplant status

== ENCOUNTER → 2019-04-30 | Outpatient (CLI) | payer OTHER, MEDICARE ==
[2019-04-30 07:47] LABS: HEMOGLOBIN 11.3 g/dL (13.5-18.0); MEAN PLATELET VOLUME 11.1 fl (7.4-10.4); RED BLOOD COUNT 3.26 M/mm3 (4.20-5.60); RED CELL DISTRIBUTION WIDTH 15.6 % (11.5-14.5); WHITE BLOOD COUNT 8.1 K/mm3 (4.8-10.8)
[2019-04-30 07:58] LABS: ALBUMIN 3.7 g/dL (3.4-4.8)
[2019-04-30 07:59] LABS: POTASSIUM 3.9 mmol/L (3.5-5.1)
[2019-04-30 08:00] LABS: CALCIUM 8.7 mg/dL (8.3-10.5)
[2019-04-30 08:01] LABS: PROTHROMBIN TIME 29.2 SECONDS (9.0-12.0); TOTAL PROTEIN 6.3 g/dL (6.2-8.1)
== END ==
LOC: LAB 07:35
DX: Z51.81 Encounter for therapeutic drug level monitoring (principal); N17.9 Acute kidney failure, unspecified; D72.819 Decreased white blood cell count, unspecified; I48.91 Unspecified atrial fibrillation; Z94.2 Lung transplant status

== ENCOUNTER → 2019-05-05 | Outpatient (CLI) | payer OTHER, MEDICARE ==
[2019-05-05 10:24] LABS: PROTHROMBIN TIME 18.8 SECONDS (9.0-12.0)
== END ==
LOC: LAB 09:31
PROVIDERS: Internal Medicine Pulmonary Disease
DX: Z51.81 Encounter for therapeutic drug level monitoring (principal); Z94.2 Lung transplant status; I48.91 Unspecified atrial fibrillation

== ENCOUNTER → 2019-05-12 | Outpatient (CLI) | payer OTHER, MEDICARE ==
[2019-05-12 09:56] LABS: PROTHROMBIN TIME 17.2 SECONDS (9.0-12.0)
== END ==
LOC: LAB 09:01
PROVIDERS: Internal Medicine Pulmonary Disease
DX: Z51.81 Encounter for therapeutic drug level monitoring (principal); I48.91 Unspecified atrial fibrillation; Z94.2 Lung transplant status

== ENCOUNTER → 2019-06-04 | Outpatient (CLI) | payer OTHER, MEDICARE ==
[2019-06-04 09:12] LABS: PROTHROMBIN TIME 20.5 SECONDS (9.0-12.0)
== END ==
LOC: LAB 08:14
PROVIDERS: Internal Medicine Pulmonary Disease
DX: Z51.81 Encounter for therapeutic drug level monitoring (principal); I48.91 Unspecified atrial fibrillation; Z94.2 Lung transplant status

== ENCOUNTER → 2019-06-20 | Outpatient (CLI) | payer OTHER, MEDICARE | LOC: RAD 07:50 | DX: Z13.6 Encounter for screening for cardiovascular disorders (principal); Z48.298 Encounter for aftercare following other organ transplant; M79.89 Other specified soft tissue disorders; Z94.2 Lung transplant status; Z79.899 Other long term (current) drug therapy ==

== ENCOUNTER → 2019-06-25 | Outpatient (CLI) | payer OTHER, MEDICARE ==
[2019-06-25 07:31] LABS: BASO # 0.1 (0.02-0.10); EOS # 0.2 (0.04-0.40); HEMATOCRIT 35.4 % (42.0-52.0); HEMOGLOBIN 11.3 g/dL (13.5-18.0); LYMPH# 1.2 (1.50-4.00); MEAN CORPUSCULAR HGB CONC 32 g/dL (33-37); MONO # 0.4 (0.20-0.80); NEU # 1.8 (1.40-6.50); PLATELET COUNT 228 K/mm3 (130-400); RED BLOOD COUNT 3.16 M/mm3 (4.20-5.60); RED CELL DISTRIBUTION WIDTH 16.8 % (11.5-14.5); WHITE BLOOD COUNT 3.6 K/mm3 (4.8-10.8)
[2019-06-25 07:40] LABS: POTASSIUM 4.3 mmol/L (3.5-5.1)
[2019-06-25 07:41] LABS: CALCIUM 9.1 mg/dL (8.3-10.5)
[2019-06-25 07:49] LABS: MEAN CELL VOLUME 112 fl (78-100)
[2019-06-25 07:50] LABS: EOS % 5.3 % (0.0-4.0); MEAN CORPUSCULAR HEMOGLOBIN 36 pg (27-31)
[2019-06-25 07:52] LABS: PROTHROMBIN TIME 20.1 SECONDS (9.0-12.0)
== END ==
LOC: LAB 07:19
PROVIDERS: Internal Medicine Pulmonary Disease
DX: Z48.298 Encounter for aftercare following other organ transplant (principal); Z51.81 Encounter for therapeutic drug level monitoring; I48.91 Unspecified atrial fibrillation; Z79.899 Other long term (current) drug therapy; Z79.01 Long term (current) use of anticoagulants; Z94.2 Lung transplant status

== ENCOUNTER → 2019-07-16 | Outpatient (CLI) | payer OTHER, MEDICARE ==
[2019-07-16 08:25] LABS: POTASSIUM 3.8 mmol/L (3.5-5.1)
[2019-07-16 08:26] LABS: CALCIUM 9.7 mg/dL (8.3-10.5)
[2019-07-16 09:31] LABS: PROTHROMBIN TIME 33.6 SECONDS (9.0-12.0)
== END ==
LOC: LAB 07:59
PROVIDERS: Internal Medicine Pulmonary Disease
DX: Z48.288 Encounter for aftercare following multiple organ transplant (principal); Z51.81 Encounter for therapeutic drug level monitoring; I48.91 Unspecified atrial fibrillation; Z94.2 Lung transplant status; Z79.899 Other long term (current) drug therapy

== ENCOUNTER → 2019-07-30 | Outpatient (CLI) | payer OTHER, MEDICARE ==
[2019-07-30 08:25] LABS: ALBUMIN 4.2 g/dL (3.4-4.8); POTASSIUM 4.4 mmol/L (3.5-5.1); PROTHROMBIN TIME 24.9 SECONDS (9.0-12.0)
[2019-07-30 08:26] LABS: CALCIUM 8.8 mg/dL (8.3-10.5)
[2019-07-30 08:29] LABS: TOTAL BILIRUBIN 0.8 mg/dL (0.2-1.2)
[2019-07-30 08:34] LABS: BASO # 0.1 (0.02-0.10); EOS # 0.2 (0.04-0.40); EOS % 3.7 % (0.0-4.0); HEMATOCRIT 38.2 % (42.0-52.0); HEMOGLOBIN 12.7 g/dL (13.5-18.0); LYMPH# 1.1 (1.50-4.00); MAGNESIUM 1.66 mg/dL (1.60-2.60); MEAN CELL VOLUME 108 fl (78-100); MEAN CORPUSCULAR HGB CONC 33 g/dL (33-37); MONO # 0.5 (0.20-0.80); NEU # 2.3 (1.40-6.50); PLATELET COUNT 141 K/mm3 (130-400); RED BLOOD COUNT 3.54 M/mm3 (4.20-5.60); RED CELL DISTRIBUTION WIDTH 16.9 % (11.5-14.5)
[2019-07-30 08:41] LABS: MEAN CORPUSCULAR HEMOGLOBIN 36 pg (27-31); MEAN PLATELET VOLUME 12.1 fl (7.4-10.4)
== END ==
LOC: LAB 07:48
PROVIDERS: Internal Medicine Pulmonary Disease
DX: Z48.298 Encounter for aftercare following other organ transplant (principal); Z51.81 Encounter for therapeutic drug level monitoring; I48.91 Unspecified atrial fibrillation; Z94.2 Lung transplant status; Z79.899 Other long term (current) drug therapy

== ENCOUNTER 2019-09-02 13:00 | Outpatient (RCR) | payer MEDICARE, OTHER | END 2019-11-17 | disposition still patient (30) | LOC: PT | DX: S46.011D Strain of muscle(s) and tendon(s) of the rotator cuff of right shoulder, subsequent encounter (principal) ==

== ENCOUNTER → 2019-09-03 | Outpatient (CLI) | payer MEDICARE, OTHER ==
[2019-09-03 07:34] LABS: BASO # 0.1 (0.02-0.10); EOS # 0.1 (0.04-0.40); EOS % 1.9 % (0.0-4.0); HEMATOCRIT 39.9 % (42.0-52.0); HEMOGLOBIN 13.4 g/dL (13.5-18.0); MEAN CELL VOLUME 107 fl (78-100); MEAN CORPUSCULAR HGB CONC 34 g/dL (33-37); MEAN PLATELET VOLUME 11.6 fl (7.4-10.4); MONO # 0.5 (0.20-0.80); NEU # 3.1 (1.40-6.50); PLATELET COUNT 132 K/mm3 (130-400); RED BLOOD COUNT 3.72 M/mm3 (4.20-5.60); RED CELL DISTRIBUTION WIDTH 16.5 % (11.5-14.5); WHITE BLOOD COUNT 4.8 K/mm3 (4.8-10.8)
[2019-09-03 07:59] LABS: ALBUMIN 4.2 g/dL (3.4-4.8); POTASSIUM 4.6 mmol/L (3.5-5.1)
[2019-09-03 08:00] LABS: CALCIUM 9.1 mg/dL (8.3-10.5)
[2019-09-03 08:02] LABS: TOTAL PROTEIN 6.8 g/dL (6.2-8.1)
[2019-09-03 08:04] LABS: PROTHROMBIN TIME 17.6 SECONDS (9.0-12.0)
[2019-09-03 08:08] LABS: MAGNESIUM 1.72 mg/dL (1.60-2.60)
[2019-09-03 08:18] LABS: MEAN CORPUSCULAR HEMOGLOBIN 36 pg (27-31)
== END ==
LOC: LAB 07:16
PROVIDERS: Internal Medicine Endocrinology, Diabetes & Metabolism
DX: Z48.298 Encounter for aftercare following other organ transplant (principal); Z79.899 Other long term (current) drug therapy; Z94.2 Lung transplant status

== ENCOUNTER → 2019-09-17 | Outpatient (CLI) | payer MEDICARE, OTHER ==
[2019-09-17 09:06] LABS: PROTHROMBIN TIME 17.5 SECONDS (9.0-12.0)
[2019-09-17 13:59] LABS: BASO # 0.1 (0.02-0.10); EOS # 0.1 (0.04-0.40); EOS % 3.3 % (0.0-4.0); HEMATOCRIT 40.6 % (42.0-52.0); HEMOGLOBIN 13.2 g/dL (13.5-18.0); MEAN CELL VOLUME 109 fl (78-100); MEAN CORPUSCULAR HEMOGLOBIN 35 pg (27-31); MEAN CORPUSCULAR HGB CONC 33 g/dL (33-37); MONO # 0.5 (0.20-0.80); NEU # 2.6 (1.40-6.50); PLATELET COUNT 158 K/mm3 (130-400); RED BLOOD COUNT 3.74 M/mm3 (4.20-5.60); RED CELL DISTRIBUTION WIDTH 16.9 % (11.5-14.5); WHITE BLOOD COUNT 4.3 K/mm3 (4.8-10.8)
[2019-09-17 14:00] LABS: MEAN PLATELET VOLUME 12.3 fl (7.4-10.4)
[2019-09-17 14:03] LABS: POTASSIUM 4.1 mmol/L (3.5-5.1)
[2019-09-17 14:04] LABS: CALCIUM 9.2 mg/dL (8.3-10.5)
[2019-09-17 14:11] LABS: MAGNESIUM 1.89 mg/dL (1.60-2.60)
== END ==
LOC: LAB 07:44
PROVIDERS: Internal Medicine Pulmonary Disease
DX: Z48.298 Encounter for aftercare following other organ transplant (principal); Z51.81 Encounter for therapeutic drug level monitoring; I48.91 Unspecified atrial fibrillation; Z94.2 Lung transplant status; Z79.01 Long term (current) use of anticoagulants; Z79.899 Other long term (current) drug therapy

== ENCOUNTER → 2019-10-01 | Outpatient (CLI) | payer MEDICARE, OTHER ==
[2019-10-01 08:55] LABS: PROTHROMBIN TIME 21.9 SECONDS (9.0-12.0)
== END ==
LOC: LAB 07:48
PROVIDERS: Internal Medicine Pulmonary Disease
DX: Z48.298 Encounter for aftercare following other organ transplant (principal); Z51.81 Encounter for therapeutic drug level monitoring; I48.91 Unspecified atrial fibrillation; Z94.2 Lung transplant status; Z79.899 Other long term (current) drug therapy; Z79.01 Long term (current) use of anticoagulants

== ENCOUNTER → 2019-10-29 | Outpatient (CLI) | payer MEDICARE, OTHER ==
[2019-10-29 08:23] LABS: BASO # 0.1 (0.02-0.10); EOS # 0.1 (0.04-0.40); EOS % 2.9 % (0.0-4.0); HEMATOCRIT 40.4 % (42.0-52.0); HEMOGLOBIN 13.3 g/dL (13.5-18.0); LYMPH# 0.9 (1.50-4.00); MEAN CELL VOLUME 108 fl (78-100); MEAN CORPUSCULAR HGB CONC 33 g/dL (33-37); MONO # 0.5 (0.20-0.80); NEU # 2.9 (1.40-6.50); PLATELET COUNT 153 K/mm3 (130-400); RED BLOOD COUNT 3.73 M/mm3 (4.20-5.60); RED CELL DISTRIBUTION WIDTH 16.2 % (11.5-14.5); WHITE BLOOD COUNT 4.6 K/mm3 (4.8-10.8)
[2019-10-29 08:27] LABS: ALBUMIN 4.2 g/dL (3.4-4.8); POTASSIUM 4.4 mmol/L (3.5-5.1); PROTHROMBIN TIME 21.8 SECONDS (9.0-12.0)
[2019-10-29 08:28] LABS: CALCIUM 9.2 mg/dL (8.3-10.5)
[2019-10-29 08:29] LABS: MEAN CORPUSCULAR HEMOGLOBIN 36 pg (27-31); TOTAL PROTEIN 6.7 g/dL (6.2-8.1)
[2019-10-29 08:31] LABS: TOTAL BILIRUBIN 1.2 mg/dL (0.2-1.2)
[2019-10-29 08:36] LABS: MAGNESIUM 1.74 mg/dL (1.60-2.60)
== END ==
LOC: LAB 07:58
PROVIDERS: Internal Medicine Pulmonary Disease
DX: Z48.298 Encounter for aftercare following other organ transplant (principal); Z51.81 Encounter for therapeutic drug level monitoring; I48.91 Unspecified atrial fibrillation; Z94.2 Lung transplant status; Z79.899 Other long term (current) drug therapy

== ENCOUNTER → 2019-11-26 | Outpatient (CLI) | payer MEDICARE, OTHER ==
[2019-11-26 08:11] LABS: BASO # 0.1 (0.02-0.10); EOS # 0.2 (0.04-0.40); EOS % 3.7 % (0.0-4.0); HEMATOCRIT 39.8 % (42.0-52.0); HEMOGLOBIN 12.9 g/dL (13.5-18.0); MEAN CELL VOLUME 109 fl (78-100); MEAN CORPUSCULAR HEMOGLOBIN 35 pg (27-31); MEAN CORPUSCULAR HGB CONC 32 g/dL (33-37); MEAN PLATELET VOLUME 11.7 fl (7.4-10.4); MONO # 0.6 (0.20-0.80); NEU # 3.1 (1.40-6.50); PLATELET COUNT 137 K/mm3 (130-400); RED BLOOD COUNT 3.65 M/mm3 (4.20-5.60); RED CELL DISTRIBUTION WIDTH 15.8 % (11.5-14.5); WHITE BLOOD COUNT 4.9 K/mm3 (4.8-10.8)
[2019-11-26 08:16] LABS: ALBUMIN 4.1 g/dL (3.4-4.8); POTASSIUM 4.1 mmol/L (3.5-5.1)
[2019-11-26 08:17] LABS: CALCIUM 8.8 mg/dL (8.3-10.5)
[2019-11-26 08:18] LABS: TOTAL PROTEIN 6.3 g/dL (6.2-8.1)
[2019-11-26 08:20] LABS: TOTAL BILIRUBIN 1.1 mg/dL (0.2-1.2)
[2019-11-26 08:26] LABS: MAGNESIUM 1.82 mg/dL (1.60-2.60)
[2019-11-26 09:46] LABS: PROTHROMBIN TIME 25.2 SECONDS (9.0-12.0)
== END ==
LOC: LAB 07:42
PROVIDERS: Internal Medicine Pulmonary Disease
DX: Z48.24 Encounter for aftercare following lung transplant (principal); Z51.81 Encounter for therapeutic drug level monitoring; I48.91 Unspecified atrial fibrillation; Z94.2 Lung transplant status; Z79.899 Other long term (current) drug therapy

== ENCOUNTER → 2019-12-24 | Outpatient (CLI) | payer MEDICARE, OTHER ==
[2019-12-24 09:49] LABS: HEMATOCRIT 39.2 % (42.0-52.0); HEMOGLOBIN 12.7 g/dL (13.5-18.0); MEAN CELL VOLUME 109 fl (78-100); MEAN CORPUSCULAR HEMOGLOBIN 35 pg (27-31); MEAN CORPUSCULAR HGB CONC 32 g/dL (33-37); PLATELET COUNT 142 K/mm3 (130-400); RED BLOOD COUNT 3.59 M/mm3 (4.20-5.60); RED CELL DISTRIBUTION WIDTH 15.8 % (11.5-14.5); WHITE BLOOD COUNT 4.4 K/mm3 (4.8-10.8)
[2019-12-24 09:54] LABS: PROTHROMBIN TIME 27.1 SECONDS (9.0-12.0)
[2019-12-24 09:58] LABS: CALCIUM 8.8 mg/dL (8.3-10.5)
[2019-12-24 09:59] LABS: TOTAL PROTEIN 6.9 g/dL (6.2-8.1)
[2019-12-24 10:01] LABS: TOTAL BILIRUBIN 1.1 mg/dL (0.2-1.2)
[2019-12-24 10:05] LABS: MAGNESIUM 1.73 mg/dL (1.60-2.60)
[2019-12-24 10:49] LABS: MEAN PLATELET VOLUME 12.3 fl (7.4-10.4)
[2019-12-24 11:08] LABS: LYMPHOCYTE 21 % (20-51); MONOCYTE 11 % (3-10); NEUTROPHILS 61 % (42-75)
== END ==
LOC: LAB 08:15
PROVIDERS: Internal Medicine Pulmonary Disease
DX: Z48.298 Encounter for aftercare following other organ transplant (principal); Z94.2 Lung transplant status; Z79.899 Other long term (current) drug therapy

== ENCOUNTER → 2020-01-22 | Outpatient (CLI) | payer MEDICARE, OTHER ==
[2020-01-22 07:46] LABS: BASO # 0.1 (0.02-0.10); EOS # 0.1 (0.04-0.40); EOS % 2.6 % (0.0-4.0); HEMATOCRIT 39.4 % (42.0-52.0); HEMOGLOBIN 13.3 g/dL (13.5-18.0); LYMPH# 1.2 (1.50-4.00); MEAN CELL VOLUME 107 fl (78-100); MEAN CORPUSCULAR HEMOGLOBIN 36 pg (27-31); MEAN CORPUSCULAR HGB CONC 34 g/dL (33-37); MEAN PLATELET VOLUME 11.5 fl (7.4-10.4); MONO # 0.6 (0.20-0.80); NEU # 3.1 (1.40-6.50); PLATELET COUNT 152 K/mm3 (130-400); RED BLOOD COUNT 3.69 M/mm3 (4.20-5.60); RED CELL DISTRIBUTION WIDTH 16.1 % (11.5-14.5)
[2020-01-22 07:56] LABS: ALBUMIN 4.2 g/dL (3.4-4.8); POTASSIUM 4.2 mmol/L (3.5-5.1)
[2020-01-22 07:58] LABS: TOTAL PROTEIN 7.1 g/dL (6.2-8.1)
[2020-01-22 08:00] LABS: TOTAL BILIRUBIN 1.2 mg/dL (0.2-1.2)
[2020-01-22 08:05] LABS: MAGNESIUM 1.74 mg/dL (1.60-2.60)
[2020-01-22 08:17] LABS: PROTHROMBIN TIME 27.5 SECONDS (9.0-12.0)
== END ==
LOC: LAB 07:31
PROVIDERS: Internal Medicine Pulmonary Disease
DX: Z48.298 Encounter for aftercare following other organ transplant (principal); Z94.2 Lung transplant status; Z79.899 Other long term (current) drug therapy

== ENCOUNTER → 2020-02-25 | Outpatient (CLI) | payer MEDICARE, OTHER ==
[2020-02-25 08:21] LABS: BASO # 0.1 (0.02-0.10); EOS # 0.2 (0.04-0.40); EOS % 3.7 % (0.0-4.0); HEMATOCRIT 39.8 % (42.0-52.0); HEMOGLOBIN 13.2 g/dL (13.5-18.0); MEAN CELL VOLUME 108 fl (78-100); MEAN CORPUSCULAR HGB CONC 33 g/dL (33-37); MEAN PLATELET VOLUME 11.6 fl (7.4-10.4); MONO # 0.5 (0.20-0.80); NEU # 2.5 (1.40-6.50); PLATELET COUNT 131 K/mm3 (130-400); RED BLOOD COUNT 3.69 M/mm3 (4.20-5.60); RED CELL DISTRIBUTION WIDTH 16.3 % (11.5-14.5); WHITE BLOOD COUNT 4.3 K/mm3 (4.8-10.8)
[2020-02-25 08:22] LABS: ALBUMIN 4.3 g/dL (3.4-4.8); POTASSIUM 4.5 mmol/L (3.5-5.1)
[2020-02-25 08:24] LABS: CALCIUM 9.3 mg/dL (8.3-10.5)
[2020-02-25 08:25] LABS: TOTAL PROTEIN 6.8 g/dL (6.2-8.1)
[2020-02-25 08:27] LABS: MEAN CORPUSCULAR HEMOGLOBIN 36 pg (27-31)
[2020-02-25 08:31] LABS: MAGNESIUM 1.69 mg/dL (1.60-2.60)
[2020-02-25 08:35] LABS: PROTHROMBIN TIME 28.8 SECONDS (9.0-12.0)
== END ==
LOC: LAB 07:57
PROVIDERS: Internal Medicine Pulmonary Disease
DX: Z51.81 Encounter for therapeutic drug level monitoring (principal); Z48.298 Encounter for aftercare following other organ transplant; I48.91 Unspecified atrial fibrillation; Z94.2 Lung transplant status

== ENCOUNTER 2020-02-26 10:03 | Outpatient (RCR) | payer MEDICARE, OTHER | END 2020-02-26 10:30 | disposition still patient (30) | LOC: PT 10:03 | DX: M75.101 Unspecified rotator cuff tear or rupture of right shoulder, not specified as traumatic (principal); Z94.2 Lung transplant status ==

== ENCOUNTER → 2020-03-24 | Outpatient (CLI) | payer MEDICARE, OTHER ==
[2020-03-24 08:24] LABS: BASO # 0.1 (0.02-0.10); EOS # 0.2 (0.04-0.40); EOS % 3.5 % (0.0-4.0); HEMATOCRIT 39.9 % (42.0-52.0); MEAN CELL VOLUME 109 fl (78-100); MEAN CORPUSCULAR HEMOGLOBIN 35 pg (27-31); MEAN CORPUSCULAR HGB CONC 33 g/dL (33-37); MEAN PLATELET VOLUME 11.4 fl (7.4-10.4); MONO # 0.5 (0.20-0.80); NEU # 2.8 (1.40-6.50); PLATELET COUNT 142 K/mm3 (130-400); RED BLOOD COUNT 3.67 M/mm3 (4.20-5.60); RED CELL DISTRIBUTION WIDTH 16.4 % (11.5-14.5); WHITE BLOOD COUNT 4.5 K/mm3 (4.8-10.8)
[2020-03-24 08:38] LABS: ALBUMIN 4.2 g/dL (3.4-4.8); POTASSIUM 4.2 mmol/L (3.5-5.1)
[2020-03-24 08:39] LABS: CALCIUM 9.1 mg/dL (8.3-10.5); PROTHROMBIN TIME 29.1 SECONDS (9.0-12.0)
[2020-03-24 08:41] LABS: TOTAL PROTEIN 6.7 g/dL (6.2-8.1)
[2020-03-24 08:42] LABS: TOTAL BILIRUBIN 1.3 mg/dL (0.2-1.2)
[2020-03-24 08:47] LABS: MAGNESIUM 1.64 mg/dL (1.60-2.60)
[2020-03-25 02:13] LABS: TACROLIMUS (PROGRAF) 5.5 ng/mL (5.0-15.0)
== END ==
LOC: LAB 08:07
DX: Z48.298 Encounter for aftercare following other organ transplant (principal); Z94.2 Lung transplant status; Z79.01 Long term (current) use of anticoagulants; Z79.899 Other long term (current) drug therapy

== ENCOUNTER → 2020-04-21 | Outpatient (CLI) | payer MEDICARE, OTHER ==
[2020-04-21 08:20] LABS: BASO # 0.1 (0.02-0.10); EOS # 0.2 (0.04-0.40); EOS % 3.2 % (0.0-4.0); HEMATOCRIT 39.4 % (42.0-52.0); HEMOGLOBIN 13.2 g/dL (13.5-18.0); LYMPH# 1.1 (1.50-4.00); MEAN CELL VOLUME 107 fl (78-100); MEAN CORPUSCULAR HGB CONC 34 g/dL (33-37); MEAN PLATELET VOLUME 11.9 fl (7.4-10.4); MONO # 0.5 (0.20-0.80); NEU # 3.1 (1.40-6.50); PLATELET COUNT 147 K/mm3 (130-400); RED BLOOD COUNT 3.67 M/mm3 (4.20-5.60); RED CELL DISTRIBUTION WIDTH 16.1 % (11.5-14.5); WHITE BLOOD COUNT 4.9 K/mm3 (4.8-10.8)
[2020-04-21 08:52] LABS: ALBUMIN 4.2 g/dL (3.4-4.8)
[2020-04-21 08:53] LABS: CALCIUM 8.9 mg/dL (8.3-10.5)
[2020-04-21 08:54] LABS: TOTAL PROTEIN 7.3 g/dL (6.2-8.1)
[2020-04-21 08:56] LABS: TOTAL BILIRUBIN 1.2 mg/dL (0.2-1.2)
[2020-04-21 09:01] LABS: MAGNESIUM 1.75 mg/dL (1.60-2.60)
[2020-04-21 09:20] LABS: MEAN CORPUSCULAR HEMOGLOBIN 36 pg (27-31)
[2020-04-21 09:34] LABS: PROTHROMBIN TIME 26.7 SECONDS (9.0-12.0)
[2020-04-21 22:21] LABS: IMMUNOGLOBULIN G 942 mg/dL (540-1822)
== END ==
LOC: LAB 08:01
PROVIDERS: Internal Medicine Pulmonary Disease
DX: Z48.298 Encounter for aftercare following other organ transplant (principal); Z79.01 Long term (current) use of anticoagulants; Z79.899 Other long term (current) drug therapy; Z94.2 Lung transplant status

== ENCOUNTER → 2020-05-06 | Outpatient (CLI) | payer MEDICARE, OTHER ==
[2020-05-06 08:25] LABS: PROTHROMBIN TIME 35.9 SECONDS (9.0-12.0)
== END ==
LOC: LAB 07:41
PROVIDERS: Internal Medicine Pulmonary Disease
DX: Z51.81 Encounter for therapeutic drug level monitoring (principal); I48.91 Unspecified atrial fibrillation; Z94.2 Lung transplant status

== ENCOUNTER → 2020-05-11 | Outpatient (CLI) | payer MEDICARE, OTHER ==
[2020-05-11 10:39] LABS: PROTHROMBIN TIME 18.4 SECONDS (9.0-12.0)
== END ==
LOC: LAB 09:47
PROVIDERS: Internal Medicine Pulmonary Disease
DX: Z51.81 Encounter for therapeutic drug level monitoring (principal); I48.91 Unspecified atrial fibrillation; Z94.2 Lung transplant status

== ENCOUNTER → 2020-05-25 | Outpatient (CLI) | payer MEDICARE, OTHER ==
[2020-05-25 09:04] LABS: BASO # 0.1 (0.02-0.10); EOS # 0.1 (0.04-0.40); EOS % 1.5 % (0.0-4.0); HEMATOCRIT 42.4 % (42.0-52.0); HEMOGLOBIN 13.4 g/dL (13.5-18.0); LYMPH# 1.1 (1.50-4.00); MEAN CELL VOLUME 110 fl (78-100); MEAN CORPUSCULAR HEMOGLOBIN 35 pg (27-31); MEAN CORPUSCULAR HGB CONC 32 g/dL (33-37); MONO # 0.7 (0.20-0.80); NEU # 5.3 (1.40-6.50); PLATELET COUNT 140 K/mm3 (130-400); RED BLOOD COUNT 3.86 M/mm3 (4.20-5.60); RED CELL DISTRIBUTION WIDTH 16.5 % (11.5-14.5); WHITE BLOOD COUNT 7.3 K/mm3 (4.8-10.8)
[2020-05-25 09:09] LABS: PROTHROMBIN TIME 25.5 SECONDS (9.0-12.0)
[2020-05-25 09:15] LABS: ALBUMIN 4.2 g/dL (3.4-4.8); POTASSIUM 4.3 mmol/L (3.5-5.1)
[2020-05-25 09:18] LABS: TOTAL PROTEIN 6.5 g/dL (6.2-8.1)
[2020-05-25 09:19] LABS: TOTAL BILIRUBIN 1.4 mg/dL (0.2-1.2)
[2020-05-25 09:24] LABS: MAGNESIUM 1.8 mg/dL (1.60-2.60)
[2020-05-25 10:11] LABS: MEAN PLATELET VOLUME 12.1 fl (7.4-10.4)
== END ==
LOC: LAB 08:09
PROVIDERS: Internal Medicine Pulmonary Disease
DX: Z48.298 Encounter for aftercare following other organ transplant (principal); Z51.81 Encounter for therapeutic drug level monitoring; I48.91 Unspecified atrial fibrillation; Z94.2 Lung transplant status; Z79.899 Other long term (current) drug therapy

== ENCOUNTER → 2020-06-02 | Outpatient (CLI) | payer MEDICARE, OTHER ==
[2020-06-02 10:54] LABS: PROTHROMBIN TIME 26.9 SECONDS (9.0-12.0)
== END ==
LOC: LAB 08:37
PROVIDERS: Internal Medicine Pulmonary Disease
DX: Z51.81 Encounter for therapeutic drug level monitoring (principal); I48.91 Unspecified atrial fibrillation; Z94.2 Lung transplant status

== ENCOUNTER → 2020-06-23 | Outpatient (CLI) | payer MEDICARE, OTHER ==
[2020-06-23 08:39] LABS: BASO # 0.1 (0.02-0.10); EOS # 0.1 (0.04-0.40); EOS % 1.7 % (0.0-4.0); HEMATOCRIT 41.5 % (42.0-52.0); HEMOGLOBIN 13.5 g/dL (13.5-18.0); LYMPH# 1.1 (1.50-4.00); MEAN CELL VOLUME 110 fl (78-100); MEAN CORPUSCULAR HGB CONC 33 g/dL (33-37); MEAN PLATELET VOLUME 11.6 fl (7.4-10.4); MONO # 0.5 (0.20-0.80); PLATELET COUNT 125 K/mm3 (130-400); RED BLOOD COUNT 3.79 M/mm3 (4.20-5.60); RED CELL DISTRIBUTION WIDTH 16.9 % (11.5-14.5); WHITE BLOOD COUNT 4.7 K/mm3 (4.8-10.8)
[2020-06-23 08:42] LABS: MEAN CORPUSCULAR HEMOGLOBIN 36 pg (27-31)
[2020-06-23 08:50] LABS: ALBUMIN 4.1 g/dL (3.4-4.8); POTASSIUM 4.6 mmol/L (3.5-5.1)
[2020-06-23 08:51] LABS: CALCIUM 9.1 mg/dL (8.3-10.5)
[2020-06-23 08:53] LABS: TOTAL PROTEIN 6.7 g/dL (6.2-8.1)
[2020-06-23 08:54] LABS: TOTAL BILIRUBIN 1.5 mg/dL (0.2-1.2)
[2020-06-23 08:59] LABS: MAGNESIUM 1.77 mg/dL (1.60-2.60)
== END ==
LOC: LAB 07:59
PROVIDERS: Internal Medicine Pulmonary Disease
DX: Z48.298 Encounter for aftercare following other organ transplant (principal); Z79.899 Other long term (current) drug therapy; Z94.2 Lung transplant status

== ENCOUNTER → 2020-07-05 | Outpatient (CLI) | payer MEDICARE, OTHER | LOC: LAB 08:12 | DX: Z48.298 Encounter for aftercare following other organ transplant (principal); Z79.899 Other long term (current) drug therapy; Z94.2 Lung transplant status ==

== ENCOUNTER → 2020-07-21 | Outpatient (CLI) | payer MEDICARE, OTHER ==
[2020-07-21 08:40] LABS: ALBUMIN 4.1 g/dL (3.4-4.8); POTASSIUM 4.6 mmol/L (3.5-5.1)
[2020-07-21 08:42] LABS: CALCIUM 8.8 mg/dL (8.3-10.5)
[2020-07-21 08:43] LABS: TOTAL PROTEIN 6.7 g/dL (6.2-8.1)
[2020-07-21 08:45] LABS: TOTAL BILIRUBIN 1.3 mg/dL (0.2-1.2)
[2020-07-21 08:49] LABS: MAGNESIUM 1.7 mg/dL (1.60-2.60)
[2020-07-21 09:03] LABS: BASO # 0.1 (0.02-0.10); EOS # 0.1 (0.04-0.40); HEMATOCRIT 41.5 % (42.0-52.0); HEMOGLOBIN 13.5 g/dL (13.5-18.0); LYMPH# 1.1 (1.50-4.00); MEAN CORPUSCULAR HGB CONC 33 g/dL (33-37); MEAN PLATELET VOLUME 11.9 fl (7.4-10.4); MONO # 0.6 (0.20-0.80); NEU # 3.2 (1.40-6.50); PLATELET COUNT 138 K/mm3 (130-400); RED BLOOD COUNT 3.72 M/mm3 (4.20-5.60); RED CELL DISTRIBUTION WIDTH 16.7 % (11.5-14.5); WHITE BLOOD COUNT 5.1 K/mm3 (4.8-10.8)
[2020-07-21 09:13] LABS: MEAN CELL VOLUME 112 fl (78-100); MEAN CORPUSCULAR HEMOGLOBIN 36 pg (27-31)
[2020-07-21 09:18] LABS: PROTHROMBIN TIME 32.1 SECONDS (9.0-12.0)
== END ==
LOC: LAB 07:56
PROVIDERS: Internal Medicine Pulmonary Disease
DX: Z48.298 Encounter for aftercare following other organ transplant (principal); Z51.81 Encounter for therapeutic drug level monitoring; I48.91 Unspecified atrial fibrillation; Z79.899 Other long term (current) drug therapy; Z94.2 Lung transplant status

== ENCOUNTER → 2020-08-25 | Outpatient (CLI) | payer MEDICARE, OTHER ==
[2020-08-25 07:59] LABS: BASO # 0.1 (0.02-0.10); EOS # 0.2 (0.04-0.40); EOS % 2.5 % (0.0-4.0); HEMATOCRIT 40.5 % (42.0-52.0); HEMOGLOBIN 13.2 g/dL (13.5-18.0); LYMPH# 1.1 (1.50-4.00); MEAN CORPUSCULAR HGB CONC 33 g/dL (33-37); MEAN PLATELET VOLUME 11.2 fl (7.4-10.4); MONO # 0.5 (0.20-0.80); NEU # 4.1 (1.40-6.50); PLATELET COUNT 155 K/mm3 (130-400); RED BLOOD COUNT 3.64 M/mm3 (4.20-5.60); RED CELL DISTRIBUTION WIDTH 16.1 % (11.5-14.5)
[2020-08-25 08:32] LABS: ALBUMIN 4.1 g/dL (3.4-4.8); POTASSIUM 4.8 mmol/L (3.5-5.1); PROTHROMBIN TIME 33.7 SECONDS (9.0-12.0)
[2020-08-25 08:35] LABS: TOTAL PROTEIN 6.8 g/dL (6.2-8.1)
[2020-08-25 08:36] LABS: TOTAL BILIRUBIN 1.1 mg/dL (0.2-1.2)
[2020-08-25 08:41] LABS: MAGNESIUM 1.78 mg/dL (1.60-2.60)
[2020-08-25 08:47] LABS: MEAN CELL VOLUME 111 fl (78-100); MEAN CORPUSCULAR HEMOGLOBIN 36 pg (27-31)
== END ==
LOC: LAB 07:29
PROVIDERS: Internal Medicine Pulmonary Disease
DX: Z48.298 Encounter for aftercare following other organ transplant (principal); Z51.81 Encounter for therapeutic drug level monitoring; I48.91 Unspecified atrial fibrillation; Z94.2 Lung transplant status; Z79.899 Other long term (current) drug therapy

== ENCOUNTER → 2020-10-22 | Outpatient (CLI) | payer MEDICARE, OTHER | LOC: LAB 10:18 | PROVIDERS: Internal Medicine Pulmonary Disease | DX: Z48.298 Encounter for aftercare following other organ transplant (principal); Z94.2 Lung transplant status; Z79.899 Other long term (current) drug therapy ==

== ENCOUNTER → 2020-10-28 | Day surgery (SDC) | payer MEDICARE, OTHER | LOC: MSO 08:12 | DX: Z12.11 Encounter for screening for malignant neoplasm of colon (principal); D12.2 Benign neoplasm of ascending colon; I48.91 Unspecified atrial fibrillation; J44.9 Chronic obstructive pulmonary disease, unspecified; I10 Essential (primary) hypertension; E11.22 Type 2 diabetes mellitus with diabetic chronic kidney disease; N18.9 Chronic kidney disease, unspecified; K21.9 Gastro-esophageal reflux disease without esophagitis; E66.01 Morbid (severe) obesity due to excess calories; C62.91 Malignant neoplasm of right testis, unspecified whether descended or undescended; Z79.899 Other long term (current) drug therapy; Z94.2 Lung transplant status; Z79.01 Long term (current) use of anticoagulants; F17.200 Nicotine dependence, unspecified, uncomplicated | CPT/HCPCS: 00811; J2704; J3010; J7120 ==

== ENCOUNTER → 2020-11-09 | Outpatient (CLI) | payer MEDICARE, OTHER | LOC: LAB 15:07 | DX: Z48.298 Encounter for aftercare following other organ transplant (principal); E11.9 Type 2 diabetes mellitus without complications; E55.9 Vitamin D deficiency, unspecified; R93.89 Abnormal findings on diagnostic imaging of other specified body structures; R79.9 Abnormal finding of blood chemistry, unspecified; Z94.2 Lung transplant status; Z79.52 Long term (current) use of systemic steroids; Z79.899 Other long term (current) drug therapy ==

== ENCOUNTER → 2020-11-24 | Outpatient (CLI) | payer MEDICARE, OTHER ==
[2020-11-24 08:00] LABS: BASO # 0.05 (0.02-0.10); EOS % 2.2 % (0.0-4.0); HEMATOCRIT 37.3 % (42.0-52.0); HEMOGLOBIN 11.9 g/dL (13.5-18.0); MEAN CELL VOLUME 110 fl (78-100); MEAN CORPUSCULAR HEMOGLOBIN 35 pg (27-31); MEAN CORPUSCULAR HGB CONC 32 g/dL (33-37); MEAN PLATELET VOLUME 11.4 fl (7.4-10.4); MONO # 0.46 (0.20-0.80); NEU # 2.84 (1.40-6.50); PLATELET COUNT 181 K/mm3 (130-400); RED CELL DISTRIBUTION WIDTH 16.5 % (11.5-14.5); WHITE BLOOD COUNT 4.6 K/mm3 (4.8-10.8)
[2020-11-24 08:18] LABS: ALBUMIN 3.9 g/dL (3.4-4.8); POTASSIUM 4.6 mmol/L (3.5-5.1)
[2020-11-24 08:19] LABS: CALCIUM 8.7 mg/dL (8.3-10.5)
[2020-11-24 08:21] LABS: TOTAL PROTEIN 6.9 g/dL (6.2-8.1)
[2020-11-24 08:22] LABS: TOTAL BILIRUBIN 1.3 mg/dL (0.2-1.2)
[2020-11-24 08:27] LABS: MAGNESIUM 1.76 mg/dL (1.60-2.60)
== END ==
LOC: LAB 07:35
PROVIDERS: Internal Medicine Pulmonary Disease
DX: Z48.298 Encounter for aftercare following other organ transplant (principal); Z94.2 Lung transplant status; Z79.899 Other long term (current) drug therapy; Z79.01 Long term (current) use of anticoagulants

== ENCOUNTER 2020-12-15 15:09 | Emergency (ER) | payer MEDICARE, OTHER ==
[2020-12-15 16:15] LABS: HEMATOCRIT 37.3 % (42.0-52.0); HEMOGLOBIN 12.4 g/dL (13.5-18.0); MEAN CELL VOLUME 106 fl (78-100); MEAN CORPUSCULAR HEMOGLOBIN 35 pg (27-31); MEAN CORPUSCULAR HGB CONC 33 g/dL (33-37); MEAN PLATELET VOLUME 11.9 fl (7.4-10.4); PLATELET COUNT 89 K/mm3 (130-400); RED BLOOD COUNT 3.51 M/mm3 (4.20-5.60); RED CELL DISTRIBUTION WIDTH 16.2 % (11.5-14.5); WHITE BLOOD COUNT 2.6 K/mm3 (4.8-10.8)
[2020-12-15 16:21] LABS: ALBUMIN 3.9 g/dL (3.4-4.8); POTASSIUM 4.4 mmol/L (3.5-5.1)
[2020-12-15 16:23] LABS: CALCIUM 8.5 mg/dL (8.3-10.5)
[2020-12-15 16:24] LABS: PROTHROMBIN TIME 13.7 SECONDS (9.0-12.0); TOTAL PROTEIN 6.8 g/dL (6.2-8.1)
[2020-12-15 16:25] LABS: TOTAL BILIRUBIN 2.3 mg/dL (0.2-1.2)
[2020-12-15 17:45] LABS: BAND 2 % (0-10); LYMPHOCYTE 12 % (20-51); MONOCYTE 13 % (3-10); NEUTROPHILS 72 % (42-75)
[2020-12-15 18:08] LABS: URINE APPEARANCE HAZY; URINE BILIRUBIN 1+ (NEGATIVE); URINE COLOR YELLOW; URINE GLUCOSE NEGATIVE (NEGATIVE); URINE KETONE NEGATIVE (NEGATIVE); URINE PROTEIN(semi-quant) 2+ mg/dL (NEGATIVE); URINE UROBILINOGEN NORMAL (NORMAL)
[2020-12-15 18:09] LABS: URINE BLOOD 250 ery/uL (NEGATIVE); URINE LEUKOCYTE ESTERASE TRACE (NEGATIVE); URINE MUCUS PRESENT (NOT PRESENT); URINE NITRATE NEGATIVE (NEGATIVE)
[2020-12-15 22:55] VITALS: BP 104/75
== END 2020-12-15 22:55 | disposition short-term general hospital (02) ==
LOC: ED 15:09
PROVIDERS: Physician Assistant
DX: E86.0 Dehydration (principal); I48.91 Unspecified atrial fibrillation; R94.5 Abnormal results of liver function studies; Z94.2 Lung transplant status; D61.818 Other pancytopenia; I10 Essential (primary) hypertension; E11.9 Type 2 diabetes mellitus without complications; Z20.822 Contact with and (suspected) exposure to COVID-19; Z79.01 Long term (current) use of anticoagulants
CPT/HCPCS: J1644; J7030

== ENCOUNTER → 2020-12-28 | Outpatient (CLI) | payer MEDICARE, OTHER ==
[2020-12-28 08:13] LABS: HEMATOCRIT 31.4 % (42.0-52.0); HEMOGLOBIN 10.2 g/dL (13.5-18.0); MEAN CELL VOLUME 108 fl (78-100); MEAN CORPUSCULAR HEMOGLOBIN 35 pg (27-31); MEAN CORPUSCULAR HGB CONC 33 g/dL (33-37); MEAN PLATELET VOLUME 11.2 fl (7.4-10.4); PLATELET COUNT 279 K/mm3 (130-400); RED BLOOD COUNT 2.91 M/mm3 (4.20-5.60); RED CELL DISTRIBUTION WIDTH 18.1 % (11.5-14.5); WHITE BLOOD COUNT 2.9 K/mm3 (4.8-10.8)
[2020-12-28 08:34] LABS: ALBUMIN 3.5 g/dL (3.4-4.8); POTASSIUM 5.1 mmol/L (3.5-5.1)
[2020-12-28 08:35] LABS: CALCIUM 9.5 mg/dL (8.3-10.5)
[2020-12-28 08:36] LABS: TOTAL PROTEIN 6.7 g/dL (6.2-8.1)
[2020-12-28 08:38] LABS: TOTAL BILIRUBIN 1.4 mg/dL (0.2-1.2)
[2020-12-28 08:43] LABS: MAGNESIUM 1.72 mg/dL (1.60-2.60)
[2020-12-28 09:37] LABS: LYMPHOCYTE 32 % (20-51); NEUTROPHILS 47 % (42-75)
[2020-12-28 09:38] LABS: MONOCYTE 21 % (3-10); TARGET CELLS 1+
== END ==
LOC: LAB 07:56
DX: Z48.298 Encounter for aftercare following other organ transplant (principal); Z94.2 Lung transplant status; Z79.899 Other long term (current) drug therapy; Z79.01 Long term (current) use of anticoagulants

== ENCOUNTER → 2021-01-06 | Outpatient (CLI) | payer MEDICARE, OTHER ==
[2021-01-06 08:10] LABS: HEMATOCRIT 32.5 % (42.0-52.0); HEMOGLOBIN 10.1 g/dL (13.5-18.0); MEAN CELL VOLUME 116 fl (78-100); MEAN CORPUSCULAR HEMOGLOBIN 36 pg (27-31); MEAN CORPUSCULAR HGB CONC 31 g/dL (33-37); MEAN PLATELET VOLUME 11.1 fl (7.4-10.4); PLATELET COUNT 174 K/mm3 (130-400); RED CELL DISTRIBUTION WIDTH 19.9 % (11.5-14.5)
[2021-01-06 08:24] LABS: PROTHROMBIN TIME 14.6 SECONDS (9.0-12.0)
[2021-01-06 09:08] LABS: ALBUMIN 3.5 g/dL (3.4-4.8); POTASSIUM 4.7 mmol/L (3.5-5.1)
[2021-01-06 09:11] LABS: TOTAL PROTEIN 6.5 g/dL (6.2-8.1)
[2021-01-06 09:12] LABS: TOTAL BILIRUBIN 1.1 mg/dL (0.2-1.2)
[2021-01-06 09:18] LABS: MAGNESIUM 1.76 mg/dL (1.60-2.60)
[2021-01-06 10:21] LABS: HYPOCHROMIA 1+; LYMPHOCYTE 43 % (20-51); MONOCYTE 14 % (3-10); NEUTROPHILS 42 % (42-75)
[2021-01-06 22:07] LABS: TACROLIMUS (PROGRAF) 3.2 ng/mL (5.0-15.0)
[2021-01-10 13:37] LABS: EPSTEIN-BARR VIRUS DNA LOG Not Detected (())
== END ==
LOC: LAB 07:29
DX: Z48.298 Encounter for aftercare following other organ transplant (principal); Z79.899 Other long term (current) drug therapy; Z79.01 Long term (current) use of anticoagulants; Z94.2 Lung transplant status

== ENCOUNTER → 2021-01-27 | Outpatient (CLI) | payer MEDICARE, OTHER ==
[2021-01-27 08:38] LABS: ALBUMIN 3.6 g/dL (3.4-4.8); POTASSIUM 4.4 mmol/L (3.5-5.1)
[2021-01-27 08:40] LABS: CALCIUM 9.2 mg/dL (8.3-10.5)
[2021-01-27 08:41] LABS: PROTHROMBIN TIME 18.3 SECONDS (9.0-12.0)
[2021-01-27 08:43] LABS: TOTAL BILIRUBIN 0.7 mg/dL (0.2-1.2)
[2021-01-27 08:47] LABS: MAGNESIUM 1.92 mg/dL (1.60-2.60)
[2021-01-27 08:48] LABS: BASO # 0.09 (0.02-0.10); EOS # 0.11 (0.04-0.40); EOS % 1.6 % (0.0-4.0); HEMATOCRIT 36.9 % (42.0-52.0); HEMOGLOBIN 11.4 g/dL (13.5-18.0); LYMPH# 1.75 (1.50-4.00); MEAN CELL VOLUME 115 fl (78-100); MEAN CORPUSCULAR HEMOGLOBIN 36 pg (27-31); MEAN CORPUSCULAR HGB CONC 31 g/dL (33-37); MONO # 0.75 (0.20-0.80); NEU # 4.16 (1.40-6.50); PLATELET COUNT 222 K/mm3 (130-400); RED BLOOD COUNT 3.21 M/mm3 (4.20-5.60); RED CELL DISTRIBUTION WIDTH 19.5 % (11.5-14.5); WHITE BLOOD COUNT 7.1 K/mm3 (4.8-10.8)
[2021-01-27 23:29] LABS: TACROLIMUS (PROGRAF) 2.9 ng/mL (5.0-15.0)
[2021-02-01 07:50] LABS: EPSTEIN-BARR VIRUS DNA LOG Detected <2.00 (())
== END ==
LOC: LAB 08:06
DX: Z48.298 Encounter for aftercare following other organ transplant (principal); Z79.899 Other long term (current) drug therapy; Z79.01 Long term (current) use of anticoagulants; Z94.2 Lung transplant status

== ENCOUNTER → 2021-02-07 | Outpatient (CLI) | payer MEDICARE, OTHER ==
[2021-02-07 09:48] LABS: BASO # 0.04 (0.02-0.10); EOS # 0.06 (0.04-0.40); HEMATOCRIT 36.7 % (42.0-52.0); HEMOGLOBIN 11.4 g/dL (13.5-18.0); LYMPH# 2.24 (1.50-4.00); MEAN CELL VOLUME 114 fl (78-100); MEAN CORPUSCULAR HEMOGLOBIN 36 pg (27-31); MEAN CORPUSCULAR HGB CONC 31 g/dL (33-37); MEAN PLATELET VOLUME 10.4 fl (7.4-10.4); MONO # 0.49 (0.20-0.80); NEU # 2.89 (1.40-6.50); PLATELET COUNT 306 K/mm3 (130-400); RED BLOOD COUNT 3.21 M/mm3 (4.20-5.60); RED CELL DISTRIBUTION WIDTH 19.2 % (11.5-14.5); WHITE BLOOD COUNT 5.8 K/mm3 (4.8-10.8)
[2021-02-07 09:56] LABS: ALBUMIN 3.6 g/dL (3.4-4.8); POTASSIUM 4.5 mmol/L (3.5-5.1)
[2021-02-07 09:58] LABS: CALCIUM 9.8 mg/dL (8.3-10.5)
[2021-02-07 09:59] LABS: PROTHROMBIN TIME 24.6 SECONDS (9.0-12.0); TOTAL PROTEIN 6.9 g/dL (6.2-8.1)
[2021-02-07 10:01] LABS: TOTAL BILIRUBIN 0.6 mg/dL (0.2-1.2)
[2021-02-07 10:05] LABS: MAGNESIUM 1.89 mg/dL (1.60-2.60)
== END ==
LOC: LAB 08:00
DX: Z48.298 Encounter for aftercare following other organ transplant (principal); Z94.2 Lung transplant status; Z79.01 Long term (current) use of anticoagulants; Z79.899 Other long term (current) drug therapy

== ENCOUNTER → 2021-02-28 | Outpatient (CLI) | payer MEDICARE, OTHER ==
[2021-02-28 23:16] LABS: TACROLIMUS (PROGRAF) 6.5 ng/mL (5.0-15.0)
[2021-03-07 13:20] LABS: EPSTEIN-BARR VIRUS DNA LOG 2.01 (<=1.99)
== END ==
LOC: LAB 08:23
PROVIDERS: Internal Medicine
DX: Z48.298 Encounter for aftercare following other organ transplant (principal); Z79.899 Other long term (current) drug therapy; Z94.2 Lung transplant status

== ENCOUNTER → 2021-03-23 | Outpatient (CLI) | payer MEDICARE, OTHER ==
[2021-03-23 09:04] LABS: HEMATOCRIT 40.8 % (42.0-52.0); HEMOGLOBIN 13.2 g/dL (13.5-18.0); MEAN PLATELET VOLUME 10.8 fl (7.4-10.4); RED BLOOD COUNT 3.72 M/mm3 (4.20-5.60); RED CELL DISTRIBUTION WIDTH 16.5 % (11.5-14.5); WHITE BLOOD COUNT 4.7 K/mm3 (4.8-10.8)
[2021-03-23 09:50] LABS: POTASSIUM 4.3 mmol/L (3.5-5.1)
[2021-03-23 09:51] LABS: CALCIUM 9.8 mg/dL (8.3-10.5)
[2021-03-23 09:54] LABS: TOTAL BILIRUBIN 0.9 mg/dL (0.2-1.2)
[2021-03-23 10:00] LABS: MAGNESIUM 1.66 mg/dL (1.60-2.60)
[2021-03-23 22:53] LABS: IMMUNOGLOBULIN G 850 mg/dL (540-1822)
[2021-03-24 12:30] LABS: TACROLIMUS (PROGRAF) 6.9 ng/mL (5.0-15.0)
[2021-03-25 13:17] LABS: CYTOMEGALOVIRUS DNA PCR Not Detected (()); CYTOMEGALOVIRUS DNA PCR LOG Not Detected (())
== END ==
LOC: LAB 08:40
DX: Z48.298 Encounter for aftercare following other organ transplant (principal); Z94.2 Lung transplant status; Z79.01 Long term (current) use of anticoagulants; Z79.899 Other long term (current) drug therapy

== ENCOUNTER → 2021-04-28 | Outpatient (CLI) | payer MEDICARE, OTHER ==
[2021-04-28 08:21] LABS: HEMATOCRIT 44.4 % (42.0-52.0); HEMOGLOBIN 14.5 g/dL (13.5-18.0); MEAN PLATELET VOLUME 11.5 fl (7.4-10.4); RED BLOOD COUNT 4.16 M/mm3 (4.20-5.60); RED CELL DISTRIBUTION WIDTH 15.6 % (11.5-14.5); WHITE BLOOD COUNT 4.1 K/mm3 (4.8-10.8)
[2021-04-28 08:47] LABS: ALBUMIN 4.2 g/dL (3.4-4.8); POTASSIUM 4.3 mmol/L (3.5-5.1)
[2021-04-28 08:49] LABS: CALCIUM 9.5 mg/dL (8.3-10.5)
[2021-04-28 08:50] LABS: TOTAL PROTEIN 6.9 g/dL (6.2-8.1)
[2021-04-28 08:56] LABS: MAGNESIUM 1.75 mg/dL (1.60-2.60)
== END ==
LOC: LAB 07:15
PROVIDERS: Internal Medicine Pulmonary Disease
DX: Z94.2 Lung transplant status (principal); Z48.298 Encounter for aftercare following other organ transplant; Z79.899 Other long term (current) drug therapy

== ENCOUNTER → 2021-06-24 | Outpatient (CLI) | payer MEDICARE, OTHER ==
[2021-06-24 11:53] LABS: ALBUMIN 4.1 g/dL (3.4-4.8); POTASSIUM 4.1 mmol/L (3.5-5.1)
[2021-06-24 11:54] LABS: CALCIUM 9.7 mg/dL (8.3-10.5)
[2021-06-24 11:55] LABS: PROTHROMBIN TIME 31.3 SECONDS (9.0-12.0)
[2021-06-24 11:56] LABS: TOTAL PROTEIN 7.3 g/dL (6.2-8.1)
[2021-06-24 11:57] LABS: TOTAL BILIRUBIN 1.4 mg/dL (0.2-1.2)
[2021-06-24 12:02] LABS: MAGNESIUM 1.61 mg/dL (1.60-2.60)
[2021-06-24 14:02] LABS: BASO # 0.05 K/mm3 (0.02-0.10); EOS # 0.19 K/mm3 (0.04-0.40); HEMATOCRIT 44.3 % (42.0-52.0); HEMOGLOBIN 14.1 g/dL (13.5-18.0); LYMPH# 1.34 K/mm3 (1.50-4.00); MEAN CELL VOLUME 107 fl (78-100); MEAN CORPUSCULAR HEMOGLOBIN 34 pg (27-31); MEAN CORPUSCULAR HGB CONC 32 g/dL (33-37); MONO # 0.49 K/mm3 (0.20-0.80); NEU # 4.35 K/mm3 (1.40-6.50); PLATELET COUNT 224 K/mm3 (130-400); RED BLOOD COUNT 4.15 M/mm3 (4.20-5.60); RED CELL DISTRIBUTION WIDTH 16.2 % (11.5-14.5); WHITE BLOOD COUNT 6.4 K/mm3 (4.8-10.8)
[2021-06-29 08:02] LABS: CYTOMEGALOVIRUS DNA PCR Not Detected (()); CYTOMEGALOVIRUS DNA PCR LOG Not Detected (())
== END ==
LOC: LAB 10:41
PROVIDERS: Internal Medicine
DX: Z48.298 Encounter for aftercare following other organ transplant (principal); Z79.899 Other long term (current) drug therapy; Z79.01 Long term (current) use of anticoagulants; Z94.2 Lung transplant status

== ENCOUNTER → 2021-09-14 | Outpatient (CLI) | payer MEDICARE, OTHER ==
[2021-09-14 08:52] LABS: POTASSIUM 4.3 mmol/L (3.5-5.1)
[2021-09-14 08:53] LABS: CALCIUM 9.5 mg/dL (8.3-10.5)
[2021-09-14 08:55] LABS: TOTAL PROTEIN 6.8 g/dL (6.2-8.1)
[2021-09-14 08:56] LABS: TOTAL BILIRUBIN 1.2 mg/dL (0.2-1.2)
[2021-09-14 09:01] LABS: MAGNESIUM 1.7 mg/dL (1.60-2.60)
== END ==
LOC: LAB 08:08
PROVIDERS: Internal Medicine
DX: Z48.298 Encounter for aftercare following other organ transplant (principal); Z94.2 Lung transplant status; Z79.899 Other long term (current) drug therapy; Z79.01 Long term (current) use of anticoagulants

== ENCOUNTER → 2021-10-19 | Outpatient (CLI) | payer MEDICARE, OTHER ==
[2021-10-19 08:10] LABS: BASO # 0.08 K/mm3 (0.02-0.10); EOS # 0.13 K/mm3 (0.04-0.40); EOS % 2.8 % (0.0-4.0); HEMATOCRIT 38.9 % (42.0-52.0); HEMOGLOBIN 12.2 g/dL (13.5-18.0); LYMPH# 1.49 K/mm3 (1.50-4.00); MEAN CELL VOLUME 117 fl (78-100); MEAN CORPUSCULAR HEMOGLOBIN 37 pg (27-31); MEAN CORPUSCULAR HGB CONC 31 g/dL (33-37); MEAN PLATELET VOLUME 11.8 fl (7.4-10.4); NEU # 2.46 K/mm3 (1.40-6.50); PLATELET COUNT 189 K/mm3 (130-400); RED BLOOD COUNT 3.34 M/mm3 (4.20-5.60); RED CELL DISTRIBUTION WIDTH 17.2 % (11.5-14.5); WHITE BLOOD COUNT 4.6 K/mm3 (4.8-10.8)
[2021-10-19 08:14] LABS: POTASSIUM 4.4 mmol/L (3.5-5.1)
[2021-10-19 08:15] LABS: ALBUMIN 4.4 g/dL (3.4-4.8)
[2021-10-19 08:16] LABS: CALCIUM 9.7 mg/dL (8.3-10.5)
[2021-10-19 08:19] LABS: TOTAL BILIRUBIN 1.3 mg/dL (0.2-1.2)
[2021-10-19 08:24] LABS: MAGNESIUM 1.91 mg/dL (1.60-2.60)
[2021-10-24 13:11] LABS: EPSTEIN-BARR VIRUS DNA LOG Not Detected (())
== END ==
LOC: LAB 07:27
PROVIDERS: Internal Medicine Pulmonary Disease
DX: Z48.298 Encounter for aftercare following other organ transplant (principal); Z94.2 Lung transplant status; Z79.899 Other long term (current) drug therapy

== ENCOUNTER → 2021-10-27 | Outpatient (CLI) | payer MEDICARE, OTHER | LOC: LAB 07:09 | DX: Z48.298 Encounter for aftercare following other organ transplant (principal); Z94.2 Lung transplant status; Z79.899 Other long term (current) drug therapy ==

== ENCOUNTER → 2022-01-25 | Outpatient (CLI) | payer MEDICARE, OTHER ==
[2022-01-25 08:07] LABS: BASO # 0.05 K/mm3 (0.02-0.10); EOS # 0.11 K/mm3 (0.04-0.40); EOS % 2.6 % (0.0-4.0); HEMATOCRIT 37.4 % (42.0-52.0); HEMOGLOBIN 11.8 g/dL (13.5-18.0); LYMPH# 1.31 K/mm3 (1.50-4.00); MEAN CELL VOLUME 117 fl (78-100); MEAN CORPUSCULAR HEMOGLOBIN 37 pg (27-31); MEAN CORPUSCULAR HGB CONC 32 g/dL (33-37); MEAN PLATELET VOLUME 11.7 fl (7.4-10.4); MONO # 0.45 K/mm3 (0.20-0.80); NEU # 2.35 K/mm3 (1.40-6.50); PLATELET COUNT 205 K/mm3 (130-400); RED BLOOD COUNT 3.21 M/mm3 (4.20-5.60); RED CELL DISTRIBUTION WIDTH 16.9 % (11.5-14.5); WHITE BLOOD COUNT 4.3 K/mm3 (4.8-10.8)
[2022-01-25 08:17] LABS: ALBUMIN 4.2 g/dL (3.4-4.8); POTASSIUM 4.4 mmol/L (3.5-5.1)
[2022-01-25 08:18] LABS: CALCIUM 9.5 mg/dL (8.3-10.5)
[2022-01-25 08:21] LABS: TOTAL BILIRUBIN 1.2 mg/dL (0.2-1.2)
[2022-01-25 08:27] LABS: MAGNESIUM 1.83 mg/dL (1.60-2.60)
[2022-01-25 22:49] LABS: TACROLIMUS (PROGRAF) 6.9 ng/mL (5.0-15.0)
[2022-01-30 12:27] LABS: EPSTEIN-BARR VIRUS DNA LOG Not Detected (())
== END ==
LOC: LAB 07:30
DX: Z48.298 Encounter for aftercare following other organ transplant (principal); Z94.2 Lung transplant status

== ENCOUNTER → 2022-01-30 | Outpatient (CLI) | payer MEDICARE, OTHER | LOC: LAB 01-27 10:39 | DX: Z94.2 Lung transplant status (principal) ==

== ENCOUNTER → 2022-02-22 | Outpatient (CLI) | payer MEDICARE, OTHER ==
[2022-02-22 08:44] LABS: BASO # 0.06 K/mm3 (0.02-0.10); EOS # 0.12 K/mm3 (0.04-0.40); EOS % 3.2 % (0.0-4.0); HEMATOCRIT 39.2 % (42.0-52.0); HEMOGLOBIN 12.5 g/dL (13.5-18.0); LYMPH# 1.15 K/mm3 (1.50-4.00); MEAN CELL VOLUME 117 fl (78-100); MEAN CORPUSCULAR HEMOGLOBIN 37 pg (27-31); MEAN CORPUSCULAR HGB CONC 32 g/dL (33-37); MEAN PLATELET VOLUME 11.7 fl (7.4-10.4); MONO # 0.37 K/mm3 (0.20-0.80); NEU # 2.04 K/mm3 (1.40-6.50); PLATELET COUNT 181 K/mm3 (130-400); RED BLOOD COUNT 3.34 M/mm3 (4.20-5.60); RED CELL DISTRIBUTION WIDTH 16.6 % (11.5-14.5); WHITE BLOOD COUNT 3.8 K/mm3 (4.8-10.8)
[2022-02-22 08:55] LABS: ALBUMIN 4.2 g/dL (3.4-4.8); POTASSIUM 4.8 mmol/L (3.5-5.1)
[2022-02-22 08:56] LABS: CALCIUM 9.3 mg/dL (8.3-10.5)
[2022-02-22 08:58] LABS: TOTAL PROTEIN 6.8 g/dL (6.2-8.1)
[2022-02-22 08:59] LABS: TOTAL BILIRUBIN 1.3 mg/dL (0.2-1.2)
[2022-02-22 09:04] LABS: MAGNESIUM 1.84 mg/dL (1.60-2.60)
== END ==
LOC: LAB 08:20
PROVIDERS: Internal Medicine Pulmonary Disease
DX: Z48.298 Encounter for aftercare following other organ transplant (principal); Z94.2 Lung transplant status; Z79.899 Other long term (current) drug therapy

== ENCOUNTER → 2022-03-16 | Outpatient (CLI) | payer MEDICARE, OTHER ==
[2022-03-16 09:30] LABS: BASO # 0.07 K/mm3 (0.02-0.10); EOS % 2.2 % (0.0-4.0); HEMATOCRIT 39.3 % (42.0-52.0); HEMOGLOBIN 12.5 g/dL (13.5-18.0); LYMPH# 1.24 K/mm3 (1.50-4.00); MEAN CELL VOLUME 116 fl (78-100); MEAN CORPUSCULAR HEMOGLOBIN 37 pg (27-31); MEAN CORPUSCULAR HGB CONC 32 g/dL (33-37); MEAN PLATELET VOLUME 12.6 fl (7.4-10.4); MONO # 0.26 K/mm3 (0.20-0.80); NEU # 2.86 K/mm3 (1.40-6.50); PLATELET COUNT 178 K/mm3 (130-400); RED BLOOD COUNT 3.38 M/mm3 (4.20-5.60); RED CELL DISTRIBUTION WIDTH 16.3 % (11.5-14.5); WHITE BLOOD COUNT 4.6 K/mm3 (4.8-10.8)
[2022-03-16 09:37] LABS: ALBUMIN 4.2 g/dL (3.4-4.8)
[2022-03-16 09:38] LABS: POTASSIUM 4.2 mmol/L (3.5-5.1)
[2022-03-16 09:39] LABS: CALCIUM 9.3 mg/dL (8.3-10.5)
[2022-03-16 09:40] LABS: TOTAL PROTEIN 6.7 g/dL (6.2-8.1)
[2022-03-16 09:42] LABS: TOTAL BILIRUBIN 1.2 mg/dL (0.2-1.2)
[2022-03-16 09:46] LABS: MAGNESIUM 1.73 mg/dL (1.60-2.60)
[2022-03-17 13:17] LABS: TACROLIMUS (PROGRAF) 13.1 ng/mL (5.0-15.0)
== END ==
LOC: LAB 07:46
PROVIDERS: Internal Medicine Pulmonary Disease
DX: Z48.298 Encounter for aftercare following other organ transplant (principal); Z94.2 Lung transplant status

== ENCOUNTER → 2022-05-03 | Outpatient (CLI) | payer MEDICARE, OTHER ==
[2022-05-03 08:33] LABS: BASO # 0.07 K/mm3 (0.02-0.10); EOS % 2.1 % (0.0-4.0); HEMATOCRIT 36.7 % (42.0-52.0); HEMOGLOBIN 11.7 g/dL (13.5-18.0); LYMPH# 1.23 K/mm3 (1.50-4.00); MEAN CELL VOLUME 121 fl (78-100); MEAN CORPUSCULAR HEMOGLOBIN 39 pg (27-31); MEAN CORPUSCULAR HGB CONC 32 g/dL (33-37); MEAN PLATELET VOLUME 11.4 fl (7.4-10.4); PLATELET COUNT 226 K/mm3 (130-400); RED BLOOD COUNT 3.03 M/mm3 (4.20-5.60); RED CELL DISTRIBUTION WIDTH 17.9 % (11.5-14.5); WHITE BLOOD COUNT 4.8 K/mm3 (4.8-10.8)
[2022-05-03 08:42] LABS: ALBUMIN 4.2 g/dL (3.4-4.8); POTASSIUM 4.4 mmol/L (3.5-5.1)
[2022-05-03 08:44] LABS: TOTAL PROTEIN 7.1 g/dL (6.2-8.1)
[2022-05-04 13:28] LABS: TACROLIMUS (PROGRAF) 4.3 ng/mL (5.0-15.0)
[2022-05-08 13:58] LABS: EPSTEIN-BARR VIRUS DNA LOG Not Detected (())
== END ==
LOC: LAB 08:02
PROVIDERS: Internal Medicine
DX: Z48.298 Encounter for aftercare following other organ transplant (principal); Z94.2 Lung transplant status

== ENCOUNTER → 2022-05-17 | Outpatient (CLI) | payer MEDICARE, OTHER ==
[2022-05-17 08:42] LABS: BASO # 0.07 K/mm3 (0.02-0.10); EOS # 0.13 K/mm3 (0.04-0.40); EOS % 2.8 % (0.0-4.0); HEMATOCRIT 38.5 % (42.0-52.0); HEMOGLOBIN 12.5 g/dL (13.5-18.0); MEAN CELL VOLUME 120 fl (78-100); MEAN CORPUSCULAR HEMOGLOBIN 39 pg (27-31); MEAN CORPUSCULAR HGB CONC 33 g/dL (33-37); MONO # 0.39 K/mm3 (0.20-0.80); NEU # 2.68 K/mm3 (1.40-6.50); PLATELET COUNT 235 K/mm3 (130-400); RED BLOOD COUNT 3.22 M/mm3 (4.20-5.60); WHITE BLOOD COUNT 4.6 K/mm3 (4.8-10.8)
[2022-05-17 08:47] LABS: ALBUMIN 4.3 g/dL (3.4-4.8); POTASSIUM 4.6 mmol/L (3.5-5.1)
[2022-05-17 08:48] LABS: CALCIUM 9.5 mg/dL (8.3-10.5)
[2022-05-17 08:49] LABS: TOTAL PROTEIN 7.2 g/dL (6.2-8.1)
[2022-05-17 08:51] LABS: TOTAL BILIRUBIN 1.1 mg/dL (0.2-1.2)
== END ==
LOC: LAB 08:26
PROVIDERS: Internal Medicine Medical Oncology
DX: Z48.298 Encounter for aftercare following other organ transplant (principal); Z94.2 Lung transplant status; Z79.899 Other long term (current) drug therapy

== ENCOUNTER → 2023-04-12 | Outpatient (CLI) | payer MEDICARE, OTHER ==
[2023-04-12 08:22] LABS: BASO # 0.04 K/mm3 (0.02-0.10); EOS # 0.08 K/mm3 (0.04-0.40); EOS % 0.9 % (0.0-4.0); HEMATOCRIT 33.6 % (42.0-52.0); HEMOGLOBIN 10.6 g/dL (13.5-18.0); LYMPH# 1.49 K/mm3 (1.50-4.00); MEAN CELL VOLUME 133 fl (78-100); MEAN CORPUSCULAR HEMOGLOBIN 42 pg (27-31); MEAN CORPUSCULAR HGB CONC 32 g/dL (33-37); MEAN PLATELET VOLUME 10.8 fl (7.4-10.4); MONO # 0.43 K/mm3 (0.20-0.80); PLATELET COUNT 342 K/mm3 (130-400); RED BLOOD COUNT 2.53 M/mm3 (4.20-5.60); RED CELL DISTRIBUTION WIDTH 16.4 % (11.5-14.5); WHITE BLOOD COUNT 8.6 K/mm3 (4.8-10.8)
[2023-04-12 08:28] LABS: ALBUMIN 4.1 g/dL (3.4-4.8)
[2023-04-12 08:30] LABS: CALCIUM 9.8 mg/dL (8.3-10.5)
[2023-04-12 08:38] LABS: MAGNESIUM 1.72 mg/dL (1.60-2.60)
== END ==
LOC: LAB 08:11
DX: Z48.298 Encounter for aftercare following other organ transplant (principal); Z49.02 Encounter for fitting and adjustment of peritoneal dialysis catheter; N18.6 End stage renal disease; Z79.899 Other long term (current) drug therapy

== ENCOUNTER → 2023-10-01 | Outpatient (CLI) | payer MEDICARE, OTHER ==
[2023-10-01 07:42] LABS: BASO # 0.06 K/mm3 (0.02-0.10); EOS # 0.13 K/mm3 (0.04-0.40); EOS % 2.4 % (0.0-4.0); HEMATOCRIT 34.4 % (42.0-52.0); LYMPH# 1.57 K/mm3 (1.50-4.00); MEAN CELL VOLUME 126 fl (78-100); MEAN CORPUSCULAR HEMOGLOBIN 40 pg (27-31); MEAN CORPUSCULAR HGB CONC 32 g/dL (33-37); MEAN PLATELET VOLUME 11.2 fl (7.4-10.4); MONO # 0.83 K/mm3 (0.20-0.80); NEU # 2.86 K/mm3 (1.40-6.50); PLATELET COUNT 216 K/mm3 (130-400); RED BLOOD COUNT 2.74 M/mm3 (4.20-5.60); RED CELL DISTRIBUTION WIDTH 16.5 % (11.5-14.5); WHITE BLOOD COUNT 5.5 K/mm3 (4.8-10.8)
[2023-10-01 07:49] LABS: ALBUMIN 4.2 g/dL (3.4-4.8)
[2023-10-01 07:50] LABS: CALCIUM 9.5 mg/dL (8.3-10.5)
[2023-10-01 07:51] LABS: TOTAL PROTEIN 6.6 g/dL (6.2-8.1)
[2023-10-01 07:53] LABS: TOTAL BILIRUBIN 0.8 mg/dL (0.2-1.2)
[2023-10-01 07:58] LABS: MAGNESIUM 1.88 mg/dL (1.60-2.60)
== END ==
LOC: LAB 07:28
PROVIDERS: Internal Medicine Pulmonary Disease
DX: Z48.298 Encounter for aftercare following other organ transplant (principal); Z49.02 Encounter for fitting and adjustment of peritoneal dialysis catheter; Z79.899 Other long term (current) drug therapy

== ENCOUNTER → 2023-10-22 | Outpatient (CLI) | payer MEDICARE, OTHER | LOC: LAB 13:40 | DX: Z94.2 Lung transplant status (principal) ==

== ENCOUNTER → 2023-11-05 | Outpatient (CLI) | payer MEDICARE, OTHER ==
[2023-12-25 13:47] LABS: ALBUMIN 4.3 g/dL (3.4-4.8); CALCIUM 9.6 mg/dL (8.3-10.5); MAGNESIUM 1.64 mg/dL (1.60-2.60); TOTAL BILIRUBIN 0.7 mg/dL (0.2-1.2); TOTAL PROTEIN 6.9 g/dL (6.2-8.1)
[2023-12-25 13:53] LABS: BASO # 0.05 K/mm3 (0.02-0.10); EOS # 0.08 K/mm3 (0.04-0.40); EOS % 1.4 % (0.0-4.0); HEMATOCRIT 35.3 % (42.0-52.0); HEMOGLOBIN 11.2 g/dL (13.5-18.0); LYMPH# 1.68 K/mm3 (1.50-4.00); MEAN CELL VOLUME 125 fl (78-100); MEAN CORPUSCULAR HEMOGLOBIN 40 pg (27-31); MEAN CORPUSCULAR HGB CONC 32 g/dL (33-37); MONO # 0.88 K/mm3 (0.20-0.80); NEU # 3.14 K/mm3 (1.40-6.50); PLATELET COUNT 213 K/mm3 (130-400); RED BLOOD COUNT 2.82 M/mm3 (4.20-5.60); RED CELL DISTRIBUTION WIDTH 15.9 % (11.5-14.5); WHITE BLOOD COUNT 5.9 K/mm3 (4.8-10.8)
== END ==
LOC: LAB 12:00
PROVIDERS: Family Medicine
DX: Z94.2 Lung transplant status (principal)

== ENCOUNTER → 2023-12-11 | Outpatient (CLI) | payer MEDICARE, OTHER ==
[2023-12-11 08:44] LABS: HEMATOCRIT 29.9 % (42.0-52.0); HEMOGLOBIN 9.4 g/dL (13.5-18.0); MEAN CELL VOLUME 124 fl (78-100); MEAN CORPUSCULAR HEMOGLOBIN 39 pg (27-31); MEAN CORPUSCULAR HGB CONC 31 g/dL (33-37); MEAN PLATELET VOLUME 10.3 fl (7.4-10.4); PLATELET COUNT 268 K/mm3 (130-400); RED BLOOD COUNT 2.41 M/mm3 (4.20-5.60); RED CELL DISTRIBUTION WIDTH 16.7 % (11.5-14.5); WHITE BLOOD COUNT 8.8 K/mm3 (4.8-10.8)
[2023-12-11 08:51] LABS: ALBUMIN 3.8 g/dL (3.4-4.8)
[2023-12-11 08:52] LABS: CALCIUM 9.8 mg/dL (8.3-10.5)
[2023-12-11 08:54] LABS: TOTAL PROTEIN 6.5 g/dL (6.2-8.1)
[2023-12-11 08:55] LABS: TOTAL BILIRUBIN 0.9 mg/dL (0.2-1.2)
[2023-12-11 09:00] LABS: MAGNESIUM 1.75 mg/dL (1.60-2.60)
[2023-12-11 15:23] LABS: LYMPHOCYTE 23 % (20-51); NEUTROPHILS 48 % (42-75)
[2023-12-11 15:24] LABS: METAMYELOCYTE 4 % (0-0); MONOCYTE 17 % (3-10)
[2023-12-11 15:25] LABS: HYPOCHROMIA 2+; MYELOCYTE 1 % (0-0)
[2023-12-11 15:26] LABS: SCHISTOCYTES 1+
[2023-12-11 15:42] LABS: BAND 6 % (0-10)
== END ==
LOC: LAB 08:27
DX: Z48.298 Encounter for aftercare following other organ transplant (principal); Z94.2 Lung transplant status

== ENCOUNTER → 2023-12-28 | Outpatient (CLI) | payer MEDICARE, OTHER ==
[2023-12-28 07:51] LABS: BASO # 0.05 K/mm3 (0.02-0.10); HEMATOCRIT 27.6 % (42.0-52.0); HEMOGLOBIN 8.7 g/dL (13.5-18.0); LYMPH# 2.38 K/mm3 (1.50-4.00); MEAN CELL VOLUME 133 fl (78-100); MEAN CORPUSCULAR HEMOGLOBIN 42 pg (27-31); MEAN CORPUSCULAR HGB CONC 32 g/dL (33-37); MEAN PLATELET VOLUME 10.1 fl (7.4-10.4); MONO # 0.78 K/mm3 (0.20-0.80); PLATELET COUNT 168 K/mm3 (130-400); RED CELL DISTRIBUTION WIDTH 19.2 % (11.5-14.5)
[2023-12-28 07:54] LABS: RED BLOOD COUNT 2.08 M/mm3 (4.20-5.60)
[2023-12-28 08:02] LABS: ALBUMIN 3.9 g/dL (3.4-4.8)
[2023-12-28 08:03] LABS: CALCIUM 9.3 mg/dL (8.3-10.5)
[2023-12-28 08:04] LABS: TOTAL PROTEIN 6.3 g/dL (6.2-8.1)
[2023-12-28 08:10] LABS: MAGNESIUM 1.61 mg/dL (1.60-2.60)
== END ==
LOC: LAB 07:35
DX: Z48.298 Encounter for aftercare following other organ transplant (principal); Z49.02 Encounter for fitting and adjustment of peritoneal dialysis catheter; Z79.899 Other long term (current) drug therapy

== ENCOUNTER → 2024-05-06 | Outpatient (CLI) | payer MEDICARE, OTHER ==
[2024-05-06 07:32] LABS: BASO # 0.04 K/mm3 (0.02-0.10); EOS # 0.17 K/mm3 (0.04-0.40); EOS % 2.5 % (0.0-4.0); HEMATOCRIT 32.2 % (42.0-52.0); HEMOGLOBIN 9.8 g/dL (13.5-18.0); MEAN CELL VOLUME 136 fl (78-100); MEAN CORPUSCULAR HEMOGLOBIN 42 pg (27-31); MEAN CORPUSCULAR HGB CONC 30 g/dL (33-37); MEAN PLATELET VOLUME 11.5 fl (7.4-10.4); NEU # 3.92 K/mm3 (1.40-6.50); PLATELET COUNT 242 K/mm3 (130-400); RED BLOOD COUNT 2.36 M/mm3 (4.20-5.60); RED CELL DISTRIBUTION WIDTH 17.1 % (11.5-14.5); WHITE BLOOD COUNT 6.8 K/mm3 (4.8-10.8)
[2024-05-06 07:40] LABS: ALBUMIN 4.4 g/dL (3.4-4.8)
[2024-05-06 07:41] LABS: CALCIUM 9.6 mg/dL (8.3-10.5)
[2024-05-06 07:42] LABS: TOTAL PROTEIN 7.1 g/dL (6.2-8.1)
[2024-05-06 07:44] LABS: TOTAL BILIRUBIN 0.7 mg/dL (0.2-1.2)
[2024-05-06 07:49] LABS: MAGNESIUM 1.78 mg/dL (1.60-2.60)
== END ==
LOC: LAB 07:17
PROVIDERS: Internal Medicine
DX: Z48.298 Encounter for aftercare following other organ transplant (principal); Z94.2 Lung transplant status